=== PATIENT | female | born 1955 | race Caucasian/White ===

== ENCOUNTER → 2018-02-21 11:15 | Outpatient (CLI) | payer OTHER, SELFPAY | PROVIDERS: Family Provider Family Medicine Geriatric Medicine; PCP Family Medicine Geriatric Medicine; Visit Provider Family Medicine Geriatric Medicine | DX: R69 Illness, unspecified (principal) | CPT/HCPCS: 87633 ==

== ENCOUNTER → 2018-05-24 16:24 | Outpatient (CLI) | payer OTHER, SELFPAY ==
[2018-05-24 17:20] LABS: Absolute Neutrophil Count 3.9 X10^3/uL (2.0-7.7); Basophil# 0.02 X10^3/uL; Basophil% 0.3 % (0-1); Eosinophil# 0.52 X10^3/uL; Eosinophils% 8.4 % (0-5); Hematocrit 36.5 % (37-47); Hemoglobin 12.2 g/dl (12.0-15.0); Lymphocyte % 19.3 % (19-41); Mean Corp Hgb Conc 33.4 g/gl (32-36); Mean Corpuscular Volume 101.7 fL (81-99); Mean Platelet Vol. 10.9 fl (6.2-12.0); Monocyte# 0.61 X10^3/uL; Monocyte% 9.8 % (0-10); Neutrophil # 3.85 X10^3/uL (2.7-7.7); Platelet Count 193 K/mm3 (150-450); RBC Distribution Width CV 12.4 % (11.6-14.6); RBC Distribution Width SD 45.2 fl (35.1-43.9); Red Blood Count 3.59 M/mm3 (4.2-5.4); White Blood Count 6.2 K/mm3 (4.4-11.0)
[2018-05-24 17:42] LABS: POSITIVE COUNT NO; POSITIVE DIFFERENTIAL NO; POSITIVE MORPHOLOGY NO
[2018-05-24 17:47] LABS: AST(SGOT) 22 U/L (15-37); Alanine Aminotransfer ALT/SGPT 41 U/L (13-56); Albumin, Serum 3.6 g/dL (3.2-5.0); Alkaline Phosphatase 46 U/L (45-117); Anion Gap 6 (5-15); BUN 24 mg/dL (7-18); BUN/Creat Ratio 32.1 RATIO (10-20); Calcium,Total 8.8 mg/dL (8.5-10.1); Chloride 102 mmol/L (98-107); Creatinine, Serum 0.75 mg/dL (0.55-1.02); EST Glomerular Filtration Rate 83 mL/min (>60); Est Glom Filt Rate - Afr Amer 100 mL/min (>60); Globulin 3.5 g/dL (2.2-4.2); Glucose 93 mg/dL (74-106); Potassium 4.1 mmol/L (3.5-5.1); Protein, Total 7.1 g/dL (6.4-8.2); Sodium Level 135 mmol/L (136-145); Thyroid Stim Hormone (TSH) 2.29 uIU/mL (0.358-3.74)
== END ==
PROVIDERS: Family Provider Family Medicine Geriatric Medicine; PCP Family Medicine Geriatric Medicine; Visit Provider Family Medicine Geriatric Medicine
DX: E55.9 Vitamin D deficiency, unspecified (principal); I10 Essential (primary) hypertension
CPT/HCPCS: 36415; 80053; 82306; 84443; 85025

== ENCOUNTER → 2019-05-15 11:45 | Outpatient (CLI) | payer OTHER, SELFPAY | PROVIDERS: Family Provider Family Medicine Geriatric Medicine; PCP Family Medicine Geriatric Medicine; Referring Provider Family Medicine Geriatric Medicine; Visit Provider Family Medicine Geriatric Medicine | DX: R50.9 Fever, unspecified (principal) | CPT/HCPCS: 87633 ==

== ENCOUNTER → 2019-05-29 15:40 | Outpatient (CLI) | payer OTHER, SELFPAY ==
[2019-05-29 17:40] LABS: Absolute Lymphocyte Count 1.44 X10^3/uL (0.83-4.51); Absolute Neutrophil Count 4.2 X10^3/uL (2.0-7.7); Basophil# 0.03 X10^3/uL; Basophil% 0.5 % (0-1); Eosinophil# 0.21 X10^3/uL; Eosinophils% 3.2 % (0-5); Hematocrit 37.3 % (37-47); Hemoglobin 12.1 g/dL (12.0-15.0); Lymphocyte # 1.44 X10^3/ul (4.0); Lymphocyte % 21.7 % (19-41); Mean Corp Hgb Conc 32.4 g/dL (32-36); Mean Corpuscular Hgb 33.2 pg (27.0-32.0); Mean Corpuscular Volume 102.5 fL (81-99); Mean Platelet Vol. 10.7 fl (6.2-12.0); Monocyte# 0.77 X10^3/uL; Monocyte% 11.6 % (0-10); NRBC Flagged by Analyzer 0 % (0-5); Neutrophil # 4.18 X10^3/uL (2.7-7.7); Neutrophil % 62.8 % (47-70); Platelet Count 178 K/mm3 (150-450); RBC Distribution Width CV 12.5 % (11.6-14.6); RBC Distribution Width SD 47.2 fl (35.1-43.9); Red Blood Count 3.64 M/mm3 (4.2-5.4); White Blood Count 6.6 K/mm3 (4.4-11.0)
[2019-05-29 18:18] LABS: AST(SGOT) 17 U/L (15-37); Alanine Aminotransfer ALT/SGPT 34 U/L (13-56); Albumin, Serum 3.6 g/dL (3.2-5.0); Alkaline Phosphatase 48 U/L (45-117); Anion Gap 7 (5-15); BUN 25 mg/dL (7-18); BUN/Creat Ratio 32.8 RATIO (10-20); Calcium,Total 8.9 mg/dL (8.5-10.1); Chloride 100 mmol/L (98-107); Creatinine, Serum 0.76 mg/dL (0.55-1.02); EST Glomerular Filtration Rate 81 mL/min (>60); Est Glom Filt Rate - Afr Amer 97 mL/min (>60); Globulin 3.5 g/dL (2.2-4.2); Glucose 95 mg/dL (74-106); Potassium 3.7 mmol/L (3.5-5.1); Protein, Total 7.1 g/dL (6.4-8.2); Sodium Level 135 mmol/L (136-145); Thyroid Stim Hormone (TSH) 2.72 uIU/mL (0.358-3.74)
== END ==
PROVIDERS: Family Provider Family Medicine Geriatric Medicine; PCP Family Medicine Geriatric Medicine; Visit Provider Family Medicine Geriatric Medicine
DX: E55.9 Vitamin D deficiency, unspecified (principal); I10 Essential (primary) hypertension
CPT/HCPCS: 36415; 80053; 82306; 84443; 85025

== ENCOUNTER → 2020-06-01 17:29 | Outpatient (CLI) | payer OTHER, SELFPAY ==
[2020-06-01 17:56] LABS: Absolute Lymphocyte Count 1.43 X10^3/uL (0.83-4.51); Absolute Neutrophil Count 3.2 X10^3/uL (2.0-7.7); Basophil# 0.02 X10^3/uL; Basophil% 0.4 % (0-1); Eosinophil# 0.27 X10^3/uL; Eosinophils% 4.9 % (0-5); Hematocrit 38.5 % (37-47); Hemoglobin 12.5 g/dL (12.0-15.0); Lymphocyte # 1.43 X10^3/ul (4.0); Lymphocyte % 25.8 % (19-41); Mean Corp Hgb Conc 32.5 g/dL (32-36); Mean Corpuscular Hgb 34.2 pg (27.0-32.0); Mean Corpuscular Volume 105.5 fL (81-99); Mean Platelet Vol. 10.7 fl (6.2-12.0); Monocyte# 0.63 X10^3/uL; Monocyte% 11.4 % (0-10); NRBC Flagged by Analyzer 0 % (0-5); Neutrophil # 3.19 X10^3/uL (2.7-7.7); Neutrophil % 57.3 % (47-70); Platelet Count 184 K/mm3 (150-450); RBC Distribution Width CV 12.2 % (11.6-14.6); RBC Distribution Width SD 48.4 fl (35.1-43.9); Red Blood Count 3.65 M/mm3 (4.2-5.4); White Blood Count 5.6 K/mm3 (4.4-11.0)
[2020-06-01 18:31] LABS: Vitamin D,25 Hydroxy 26.9 ng/mL
[2020-06-01 18:43] LABS: ALB/GLOB Ratio 0.9 RATIO (0.9-2.4); AST(SGOT) 20 U/L (15-37); Alanine Aminotransfer ALT/SGPT 34 U/L (13-56); Albumin, Serum 3.6 g/dL (3.2-5.0); Alkaline Phosphatase 49 U/L (45-117); Anion Gap 7 (5-15); BUN 17 mg/dL (7-18); BUN/Creat Ratio 20.5 RATIO (10-20); Calcium,Total 9.5 mg/dL (8.5-10.1); Chloride 104 mmol/L (98-107); Creatinine, Serum 0.83 mg/dL (0.55-1.02); EST Glomerular Filtration Rate 73 mL/min (>60); Est Glom Filt Rate - Afr Amer 88 mL/min (>60); Globulin 3.8 g/dL (2.2-4.2); Glucose 92 mg/dL (74-106); Potassium 4.4 mmol/L (3.5-5.1); Protein, Total 7.4 g/dL (6.4-8.2); Sodium Level 138 mmol/L (136-145); Thyroid Stim Hormone (TSH) 4.39 uIU/mL (0.358-3.74)
== END ==
PROVIDERS: PCP Family Medicine Geriatric Medicine; Visit Provider Family Medicine Geriatric Medicine
DX: I10 Essential (primary) hypertension (principal); E55.9 Vitamin D deficiency, unspecified
CPT/HCPCS: 36415; 80053; 82306; 84443; 85025

== ENCOUNTER → 2020-07-07 11:21 | Outpatient (CLI) | payer OTHER, SELFPAY ==
[2020-07-07 12:57] LABS: Thyroid Stim Hormone (TSH) 1.94 uIU/mL (0.358-3.74)
== END ==
PROVIDERS: PCP Family Medicine Geriatric Medicine; Visit Provider Family Medicine Geriatric Medicine
DX: E03.9 Hypothyroidism, unspecified (principal)
CPT/HCPCS: 36415; 84443

== ENCOUNTER → 2020-09-17 16:00 | Outpatient (CLI) | payer OTHER, SELFPAY ==
[2020-09-17 16:59] LABS: Absolute Lymphocyte Count 0.55 X10^3/uL (0.83-4.51); Absolute Neutrophil Count 1.7 X10^3/uL (2.0-7.7); Basophil# 0.01 X10^3/uL; Basophil% 0.4 % (0-1); Eosinophil# 0.02 X10^3/uL; Eosinophils% 0.7 % (0-5); Hematocrit 39.8 % (37-47); Lymphocyte # 0.55 X10^3/ul (4.0); Lymphocyte % 20.4 % (19-41); Mean Corp Hgb Conc 32.7 g/dL (32-36); Mean Corpuscular Hgb 32.9 pg (27.0-32.0); Mean Corpuscular Volume 100.8 fL (81-99); Mean Platelet Vol. 11.4 fl (6.2-12.0); Monocyte# 0.41 X10^3/uL; Monocyte% 15.2 % (0-10); NRBC Flagged by Analyzer 0 % (0-5); Neutrophil # 1.71 X10^3/uL (2.7-7.7); Neutrophil % 63.3 % (47-70); POSITIVE DIFFERENTIAL YES; Platelet Count 128 K/mm3 (150-450); RBC Distribution Width CV 12.3 % (11.6-14.6); RBC Distribution Width SD 46.5 fl (35.1-43.9); Red Blood Count 3.95 M/mm3 (4.2-5.4); White Blood Count 2.7 K/mm3 (4.4-11.0)
[2020-09-17 17:21] LABS: Differential Indicated SCAN CRITERIA MET
[2020-09-17 17:23] LABS: AST(SGOT) 36 U/L (15-37); Alanine Aminotransfer ALT/SGPT 46 U/L (13-56); Albumin, Serum 3.6 g/dL (3.2-5.0); Alkaline Phosphatase 58 U/L (45-117); Anion Gap 6 (5-15); BUN 12 mg/dL (7-18); BUN/Creat Ratio 13.8 RATIO (10-20); Chloride 100 mmol/L (98-107); Creatinine, Serum 0.87 mg/dL (0.55-1.02); EST Glomerular Filtration Rate 69 mL/min (>60); Est Glom Filt Rate - Afr Amer 83 mL/min (>60); Globulin 3.7 g/dL (2.2-4.2); Glucose 98 mg/dL (74-106); Platelet Estimate SLT DEC (ADEQ); Potassium 3.8 mmol/L (3.5-5.1); Protein, Total 7.3 g/dL (6.4-8.2); Sodium Level 135 mmol/L (136-145); Thyroid Stim Hormone (TSH) 1.74 uIU/mL (0.358-3.74)
[2020-09-17 17:24] LABS: Anisocytosis 1+; Red Cell Morphology N CHROM NORMAL (NORM C&C)
[2020-09-17 17:25] LABS: Macrocytosis 1+
[2020-09-18 09:36] LABS: Pathologist Review Reviewed
== END ==
PROVIDERS: PCP Family Medicine Geriatric Medicine; Visit Provider Family Medicine Geriatric Medicine
DX: R53.83 Other fatigue (principal)
CPT/HCPCS: 36415; 80053; 84443; 85025

== ENCOUNTER → 2020-09-17 16:03 | Outpatient (CLI) | payer OTHER, SELFPAY ==
--- NOTE | 2020-09-17 16:05 | RAD_ITS ---
STUDY: X-RAY CHEST REASON FOR EXAM: Female, 65 years old. CHEST TIGHTNESS, COLD SX TECHNIQUE: 2 views COMPARISON: Prior chest radiograph of 09/26/2015 FINDINGS: The lungs are clear and expanded. Calcified granuloma at the right lung base. Normal size heart. Normal mediastinum and vance. Normal visualized pulmonary arteries. Mild elongation of the thoracic aorta. Straightening of the thoracic spine with degenerative disc changes. Normal visualized ribs, clavicles, and shoulders. There is no demonstrated abnormality of the visualized soft tissue structures of the upper abdomen. RAD/Chest PA and Lateral IMPRESSION: No acute cardiopulmonary findings or changes. Negative for new consolidation, focal atelectasis, pleural effusion or cardiomegaly. Electronically Signed: Linda Borja MD at 19:41 EST , Service support ,
== END ==
PROVIDERS: PCP Family Medicine Geriatric Medicine; Referring Provider Family Medicine Geriatric Medicine; Visit Provider Family Medicine Geriatric Medicine
DX: R07.89 Other chest pain (principal)
CPT/HCPCS: 71046

== ENCOUNTER → 2022-02-21 | Outpatient (CLI) | payer OTHER, SELFPAY ==
[2022-02-21 14:39] LABS: Absolute Lymphocyte Count 1.28 X10^3/uL (0.83-4.51); Absolute Neutrophil Count 4.4 X10^3/uL (2.0-7.7); Basophil# 0.03 X10^3/uL; Basophil% 0.5 % (0-1); Eosinophil# 0.23 X10^3/uL; Eosinophils% 3.5 % (0-5); Hematocrit 39.1 % (37-47); Hemoglobin 13.1 g/dL (12.0-15.0); Lymphocyte # 1.28 X10^3/ul (0.83-4.51); Lymphocyte % 19.2 % (19-41); Mean Corp Hgb Conc 33.5 g/dL (32-36); Mean Corpuscular Hgb 34.7 pg (27.0-32.0); Mean Corpuscular Volume 103.7 fL (81-99); Mean Platelet Vol. 9.8 fl (6.2-12.0); Monocyte# 0.68 X10^3/uL; Monocyte% 10.2 % (0-10); NRBC Flagged by Analyzer 0 % (0-5); Neutrophil # 4.43 X10^3/uL (2.7-7.7); Neutrophil % 66.4 % (47-70); Platelet Count 209 K/mm3 (150-450); RBC Distribution Width CV 13.2 % (11.6-14.6); RBC Distribution Width SD 50.7 fl (35.1-43.9); Red Blood Count 3.77 M/mm3 (4.2-5.4); White Blood Count 6.7 K/mm3 (4.4-11.0)
--- NOTE | 2022-02-21 14:41 | RAD_ITS ---
EXAM: XR CHEST, 2 VIEWS CLINICAL INDICATION: Chronic Cough X 1-2 Years TECHNIQUE: Frontal and lateral views of the chest. This report was created using [employer] report generation technology. COMPARISON: 09/17/2020. FINDINGS: LUNGS AND PLEURAL SPACES: Unremarkable. No consolidation or edema. No pneumothorax. No effusion. HEART: Unremarkable. Cardiac silhouette not enlarged. MEDIASTINUM: Central airways and mediastinal contour are unremarkable. BONES/JOINTS: Unremarkable. SOFT TISSUES: Unremarkable. RAD/Chest PA and Lateral IMPRESSION: No acute cardiopulmonary abnormality. No change. Electronically Signed: Ryan Vasquez MD at 7:53 EDT ,
[2022-02-25 11:08] LABS: Alternaria tenuis <0.10 kU/L (Class 0); Ash, White <0.10 kU/L (Class 0); Aspergillus fumigatus <0.10 kU/L (Class 0); Bermuda Grass <0.10 kU/L (Class 0); Birch <0.10 kU/L (Class 0); Black Walnut <0.10 kU/L (Class 0); Cat Hair / Dander,Stand <0.10 kU/L (Class 0); Cedar, Mountain <0.10 kU/L (Class 0); Cladosporium herbarum <0.10 kU/L (Class 0); Cockroach, American <0.10 kU/L (Class 0); Cottonwood <0.10 kU/L (Class 0); D farinae Mite <0.10 kU/L (Class 0); D pteronyssinus <0.10 kU/L (Class 0); Dog Epithelia <0.10 kU/L (Class 0); Elm, American White <0.10 kU/L (Class 0); Immunoglobulin E 78 IU/mL (6-495); Maple/Box Elder <0.10 kU/L (Class 0); Mulberry, White <0.10 kU/L (Class 0); Oak, White <0.10 kU/L (Class 0); Pecan <0.10 kU/L (Class 0); Penicillium Notatum <0.10 kU/L (Class 0); Pigweed, Rough <0.10 kU/L (Class 0); Ragweed, Short/Common <0.10 kU/L (Class 0); Russian Thistle 0.13 kU/L (Class 0/I); Sheep Sorrel <0.10 kU/L (Class 0); Sycamore, American <0.10 kU/L (Class 0); Timothy Grass 0.28 kU/L (Class 0/I)
[2022-02-25 22:13] LABS: Immunoglobulin E 78 IU/mL (6-495); Mouse Urine <0.10 kU/L (Class 0)
== END | disposition home or self-care (01) ==
PROVIDERS: PCP Family Medicine Geriatric Medicine; Referring Provider Internal Medicine Critical Care Medicine; Visit Provider Internal Medicine Critical Care Medicine
DX: R05.3 Chronic cough (principal)
CPT/HCPCS: 36415; 71046; 82785; 85025; 86003

== ENCOUNTER → 2022-03-17 | Outpatient (CLI) | payer OTHER, SELFPAY ==
--- NOTE | 2022-03-18 07:27 | PFT ---
INTRODUCTION: The patient is a 67-year-old female that presents for pulmonary function studies secondary to a diagnosis of chronic cough. Respiratory therapy reported good patient effort. Bronchodilators were used during testing. INTERPRETATION: Forced expiration spirometry demonstrates the presence of a mild large airways obstructive ventilatory defect. There was no significant response to aerosolized bronchodilators. Spirograms are of good quality but do not plateau indicating slow emptying of the lungs. Body plethysmography was performed and reveals lung volumes to be within normal limits. Diffusing capacity by single breath CO is also within normal limits. When compared to PFTs from June 2015, there has been a 27% reduction in FEV1. IMPRESSION: Irreversible mild large airways obstructive ventilatory defect with preserved lung volumes and diffusing capacity.
== END | disposition home or self-care (01) ==
PROVIDERS: PCP Family Medicine Geriatric Medicine; Referring Provider Internal Medicine Critical Care Medicine; Visit Provider Internal Medicine Critical Care Medicine
DX: R05.3 Chronic cough (principal)
CPT/HCPCS: 94060; 94726; 94729

== ENCOUNTER 2022-07-08 09:08 | Outpatient (CLI) | payer OTHER, SELFPAY ==
[2022-07-08 13:00] LABS: Absolute Lymphocyte Count 1.51 X10^3/uL (0.83-4.51); Absolute Neutrophil Count 2.5 X10^3/uL (2.0-7.7); Basophil# 0.03 X10^3/uL; Basophil% 0.6 % (0-1); Eosinophil# 0.31 X10^3/uL; Eosinophils% 6.1 % (0-5); Hematocrit 40.6 % (37-47); Hemoglobin 13.1 g/dL (12.0-15.0); Lymphocyte # 1.51 X10^3/ul (0.83-4.51); Lymphocyte % 29.6 % (19-41); Mean Corp Hgb Conc 32.3 g/dL (32-36); Mean Corpuscular Hgb 33.4 pg (27.0-32.0); Mean Corpuscular Volume 103.6 fL (81-99); Mean Platelet Vol. 11.3 fl (6.2-12.0); Monocyte# 0.72 X10^3/uL; Monocyte% 14.1 % (0-10); NRBC Flagged by Analyzer 0 % (0-5); Neutrophil # 2.51 X10^3/uL (2.7-7.7); Neutrophil % 49.2 % (47-70); Platelet Count 185 K/mm3 (150-450); RBC Distribution Width CV 13.2 % (11.6-14.6); RBC Distribution Width SD 50.2 fl (35.1-43.9); Red Blood Count 3.92 M/mm3 (4.2-5.4); White Blood Count 5.1 K/mm3 (4.4-11.0)
[2022-07-08 13:14] LABS: Vitamin D,25 Hydroxy 29.8 ng/mL
[2022-07-08 13:51] LABS: AST(SGOT) 46 U/L (15-37); Alanine Aminotransfer ALT/SGPT 66 U/L (13-56); Albumin, Serum 3.6 g/dL (3.2-5.0); Alkaline Phosphatase 53 U/L (45-117); Anion Gap 5 (5-15); BUN 13 mg/dL (7-18); BUN/Creat Ratio 16.9 RATIO (10-20); Chloride 101 mmol/L (98-107); Creatinine, Serum 0.77 mg/dL (0.55-1.02); EST Glomerular Filtration Rate 79 mL/min (>60); Est Glom Filt Rate - Afr Amer 96 mL/min (>60); Globulin 3.7 g/dL (2.2-4.2); Glucose 85 mg/dL (74-106); Potassium 3.9 mmol/L (3.5-5.1); Protein, Total 7.3 g/dL (6.4-8.2); Sodium Level 136 mmol/L (136-145)
== END 2022-07-08 23:59 | disposition home or self-care (01) ==
LOC: POLAB3 09:08
PROVIDERS: PCP Family Medicine Geriatric Medicine; Visit Provider Family Medicine Geriatric Medicine
DX: I10 Essential (primary) hypertension (principal); E55.9 Vitamin D deficiency, unspecified
CPT/HCPCS: 36415; 80053; 82306; 84443; 85025

== ENCOUNTER → 2022-12-07 | Outpatient (CLI) | payer OTHER, SELFPAY | END | disposition home or self-care (01) | PROVIDERS: PCP Family Medicine Geriatric Medicine; Referring Provider Family Medicine Geriatric Medicine; Visit Provider Family Medicine Geriatric Medicine | DX: A69.20 Lyme disease, unspecified (principal); W57.XXXA Bitten or stung by nonvenomous insect and other nonvenomous arthropods, initial encounter | CPT/HCPCS: 36415 ==

== ENCOUNTER → 2023-08-22 | Outpatient (CLI) | payer OTHER, MEDICARE, SELFPAY ==
--- OUTSIDE RECORDS SUMMARY | 2023-08-22 11:07 | XMS RPT_ITS | CCD ---
Author Name Unknown Address [id number] [place] [address] Organization [facility] Care Team Providers Care Rib Trim Separator Name Role Phone No, Physician Unavailable Unavailable Mona Humphries J Unavailable Unavailable Humphries Mona J Unavailable Unavailable Humphries, Mona J Unavailable Unavailable Humphries, Mona J Unavailable Unavailable Humphries, Oliverio J Unavailable Unavailable Humphries, Oliverio J Unavailable Unavailable Humphries, Mona J Unavailable Unavailable Humphries, Mona J Unavailable Unavailable Humphries, Mona J Unavailable Unavailable Humphries, Mona J Unavailable Unavailable MONA HUMPHRIES DPM Admitting Unavailable MONA HUMPHRIES DPM Attending Unavailable MONA HUMPHRIES DPUte Primary Care Unavailable No, Physician Primary Care Provider Unavailruma Gallardo MD, Rosio Mccormack Primary Care Provider [phone] Martita, Sylvia Unavailable Priyanka Plascencia Unavailable Unavailable Brayan Pennington Unavailable Unavailable Rosio Gallardo Chi Primary Care Provider [phone] Martita, JorgeChi Unavailable Martita, Dr. Ward Primary Care Unavailable Omari Castro Attending Unavailable Brayan Pennington Attending Unavailable Dr. Sylvia Gallardo Primary Care Unavailable Priyanka Plascencia Attending Unavailab Dr. Sylvia Mcfarland Primary Care Unavailable Omari Castro Attending Unavailable Martita, Dr. Ward Primary Care Unavailable Omari Castro Attending Unavailable Martita, Dr. Ward Primary Care Unavailable Martita, Dr. Ward Primary Care Unavailable Omari Castro Attending Unavailable Dr. Sylvia Gallardo Primary Care Unavailable Omari Castro Attending Unavailable Martita, Dr. Ward Primary Care Unavailable Omari Castro Attending Unavailable Dr. Martita [facility] Primary Care Unavailable Omari Castro Attending Unavailable Martita PENA, [facility] Primary Care Provider CHAIM FRANKLIN Attending Unavailab le MARTITA, [facility] Primary Care Unavailable HUMPHRIESMONA ZENG Admitting Unavaila ble HUMPHRIESMONA Admitting Unavaila ble HUMPHRIESMONA ZENG Attending Unavaila ble MARTITA, [facility] Primary Care Unavailable MARTITA, ROSIO CHI Primary Care Unavailable HUMPHRIESMONA Attending Unavaila ble MARTITA, ROSIO CHI Primary Care Unavailable HUMPHRIESMONA ZENG Attending Unavaila ble MARTITA, [facility] Primary Care Unavailable HUMPHRIESMONA ZENG Attending Unavaila ble MARTITA, [facility] Primary Care Unavailable HUMPHRIES, MONA HUTSON Attending Unavaila ble MARTITA, [facility] Primary Care Unavailable HUMPHRIESMONA ZENG Attending Unavaila ble MARTITA, [facility] Primary Care Unavailable HUMPHRIESMONA ZENG Attending Unavaila ble MARTITA, [facility] Primary Care Unavailable HUMPHRIESMONA ZENG Attending Unavaila ble MARTITA, [facility] Primary Care Unavailable MONA HUMPHRIES Referring Unavaila ble MONA HUMPRHIES Admitting Unavaila ble Martita, [facility] Primary Care Provider [phone] MARTITA, [facility] Primary Care Unavailable TE KELLY II Attending Unavailabl e MARTITA, [facility] Primary Care Unavailable KATE KELLY Attending Unavailabl e Allergies Allergy Classification Reported Allergen(s) Allergy Type Date of Onset Reaction(s) Facility Unclassified (10 sources) Insect Venom; Translations: [INSECT VENOM] Propensity to adverse reactions to drug 1 Anaphylaxis [facility] (11 sources) Hornet venom; Translations: [HORNET VENOM] Drug Allergy 7 Anaphylaxis [facility] (3 sources) Insects; Translations: [INSECTS] Allergy to substance 4 Anaphylaxis [facility] (3 sources) Wasps; Translations: [WASPS] Allergy to substance 7 Anaphylaxis [facility] (3 sources) Yellowjackets; Translations: [YELLOWJACKETS] Allergy to substance 7 Anaphylaxis [facility] (8 sources) wasp venom; Translations: [WASP VENOM] Propensity to adverse reactions to drug 7 Anaphylaxis [facility] Medications Current Medications Medication Drug Class(es) Dates Sig (Normalized) Sig (Original) cephalexin 500 mg oral capsule (1 source) Cephalosporin Antibacterial Start: 11-17-2022 End: 11-24-2022 take 1 capsule by mouth four times daily cephALEXin (KEFLEX) 500 MG capsule Take 1 (one) capsule (500 mg total) by mouth 4 (four) times a day for 7 days . 28 capsule 0 11/17/2022 11/24/2022 Active citalopram 20 mg oral tablet (10 sources) Serotonin Reuptake Inhibitor Start: 01-22-2015 take 1 tablet by mouth once daily in the morning citalopram (CELEXA) 20 MG tablet Take 1 (one) tablet (20 mg total) by mouth every morning . 0 05/06/2022 Active Completed/Discontinued Medications Medication Drug Class(es) Dates Sig (Normalized) Sig (Original) [id number] 200 actuat albuterol 0.09 mg/actuat metered dose inhaler (3 sources) beta2-Adrenergic Agonist Start: 01-03-2022 take 2 puff(s) by inhalation four times daily albuterol 90 mcg/inh inhalation aerosol ; 2 puff(s) inhaled 4 times a day Quantity: 1 Refills: 0 Ordered: 03-Jan-2022 Brayan Pennington Start: 03-Jan-2022 Generic Substitution Allowed Comments: For inhalation only.It is very important that you take or use this exactly as directed. Do not skip doses or discontinue unless directed by your doctor.Obtain medical advice before taking any non-prescription drugs as some may affect the action of this medication.Shake well before use. Problems Active Problems Problem Classification Problem Date Documented Date Episodic/Chronic Acquired foot deformities (7 sources) Acquired hallux valgus; Translations: [Hallux valgus (acquired), unspecified foot] 02-28-2021 Chronic Blindness and vision defects (8 sources) Bilateral hyperopia of eyes; Translations: [Hypermetropia, bilateral] Onset: 03-22-2014 Episodic Cataract (3 sources) Bilateral senile combined form cataracts of eyes; Translations: [Combined forms of age-related cataract, bilateral] Onset: 03-22-2014 03-19-2018 Chronic Complications of surgical procedures or medical care (3 sources) Infection following a procedure, superficial incisional surgical site, initial encounter; Translations: [Other postoperative infection] Onset: 11-17-2022 11-17-2022 Episodic Esophageal disorders (5 sources) Gastroesophageal reflux disease; Translations: [Gastro-esophageal reflux disease without esophagitis] Onset: 10-28-2022 10-28-2022 Chronic Essential hypertension (5 sources) Hypertensive disorder; Translations: [Essential (primary) hypertension] Onset: 10-28-2022 10-28-2022 Chronic Headache; including migraine (3 sources) Headache; including migraine; Translations: [Headache, unspecified] Onset: 01-03-2022 01-03-2022 Past or Other Problems Problem Classification Problem Date Documented Date Episodic/Chronic Other circulatory disease (1 source) Other specified symptoms and signs involving the circulatory and respiratory systems; Translations: [Oth symptoms and signs involving the circ and resp systems] Onset: 08-19-2021 Episodic Other connective tissue disease (2 sources) Pain in left foot; Translations: [Pain in left foot] Onset: 07-21-2022 Episodic Other eye disorders (2 sources) Subconjunctival hemorrhage of left eye; Translations: [Conjunctival hemorrhage, left eye] Onset: 12-25-2017 12-25-2017 Episodic Other lower respiratory disease (1 source) Wheezing; Translations: [Wheezing] Onset: 08-19-2021 Episodic Other upper respiratory disease (1 source) Nasal congestion; Translations: [Nasal congestion] Onset: 08-19-2021 Episodic Other upper respiratory infections (4 sources) Acute upper respiratory infection; Translations: [Acute upper respiratory infections of unspecified site] Onset: 08-19-2021 08-19-2021 Episodic Pleurisy; pneumothorax; pulmonary collapse (3 sources) Atelectasis; Translations: [Pulmonary collapse] Onset: 01-03-2022 01-03-2022 Episodic Pneumonia (except that caused by tuberculosis or sexually transmitted disease) (3 sources) Pneumonia; Translations: [Pneumonia, organism unspecified] Onset: 01-03-2022 01-03-2022 Episodic Results Test Name Value Interpretation Reference Range Facil ity Vital Signs Date Time Vital Sign Value Performing Clinician Faci lity 11-17-2022 16:05-0400 Body temperature 98.6 [degF] Mona Humphries DPM Work Phone: [facility] 11-17-2022 16:05-0400 Diastolic blood pressure 83 mm[Hg] Mona Hupmhries DPM Work Phone: [facility] 11-17-2022 16:05-0400 Heart rate 57 /min Mona Humphries DPM Work Phone: [facility] 11-17-2022 16:05-0400 Systolic blood pressure 160 mm[Hg] Mona Humphries DPM Work Phone: [facility] 11-10-2022 15:44-0400 Diastolic blood pressure 86 mm[Hg] Mona Humphries DPM Work Phone: [facility] 11-10-2022 15:44-0400 Heart rate 59 /min Mona Humphries DPM Work Phone: [facility] 11-10-2022 15:44-0400 Systolic blood pressure 172 mm[Hg] Mona Humphries DPM Work Phone: [facility] 11-10-2022 15:35-0400 Body temperature 98.49 [degF] Mona Humphries DPM Work Phone: [facility] 10-28-2022 12:57-0400 Body temperature 97.59 [degF] Monalokesh BazanHumphries DPM Work Phone: [facility] 10-28-2022 12:57-0400 Diastolic blood pressure 112 mm[Hg] Mona Humphries DPM Work Phone: [facility] 10-28-2022 12:57-0400 Heart rate 71 /min Mona Humphries DPM Work Phone: [facility] 10-28-2022 12:57-0400 Systolic blood pressure 158 mm[Hg] Mona Humphries DPM Work Phone: [facility] 10-13-2022 15:48-0500 Diastolic blood pressure 85 mm[Hg] Mona Humphries DPM Work Phone: [facility] 10-13-2022 15:48-0500 Heart rate 61 /min Mona Humphries DPM Work Phone: [facility] 10-13-2022 15:48-0500 Systolic blood pressure 135 mm[Hg] Mona Humphries DPM Work Phone: [facility] 10-13-2022 15:41-0500 Body temperature 97.2 [degF] Mona Humphries DPM Work Phone: [facility] 08-18-2022 16:09-0500 Diastolic blood pressure 90 mm[Hg] Mona Humphries DPM Work Phone: [facility] 08-18-2022 16:09-0500 Systolic blood pressure 140 mm[Hg] Mona Humphries DPM Work Phone: [facility] 08-18-2022 15:47-0500 Body temperature 97.3 [degF] Mona Humphires DPM Work Phone: [facility] 07-21-2022 17:07-0500 Diastolic blood pressure 111 mm[Hg] Mona Humphries DPM Work Phone: [facility] Encounters Encounter Date Encounter Type Care Provider Facility Start: 03-09-2023 End: 03-09-2023 ambulatory ROSIO CHI MARTITA Facility:[facility] Start: 03-09-2023 End: 03-09-2023 Patient encounter procedure Te Kelly OD Work Phone: Optometry Procedures Date Procedure Procedure Detail Performing Clinician Start: 02-18-2021 Radex foot complete minimum 3 views Mona Humphries DPM Work Phone: Start: 07-17-2018 End: 07-17-2018 Basic metabolic 2000 panel - Serum or Plasma Mona Humphries Work Phone: Start: 07-17-2018 End: 07-17-2018 Complete blood count with white cell differential, manual Mona Humphries Work Phone: Plan of Treatment Date Care Activity Detail Author Start: 09-01-2023 Influenza vaccination INFLUENZA (#1) [facility] Start: 12-01-2022 End: 12-01-2022 Patient encounter procedure 12/01/2022 3:45 PM EDT Office Visit [facility] [address] [place] [address] Mona Humphries, MARY [address] [place] [address] [facility] Start: 11-17-2022 End: 11-17-2022 Patient encounter procedure 11/17/2022 4:15 PM EDT Office Visit [facility] [address] [place] [address] Mona Humphries, MARY [address] [place] [address] [facility] Start: 11-10-2022 End: 11-10-2022 Follow-up encounter 11/10/2022 Follow-Up Podiatry Mona Humphries DPM [address] [place] [address] [facility] Start: 11-02-2022 End: 11-02-2022 Admission to same day surgery center 11/02/2022 Surgery Mona Humphries DPM [address] [place] [address] GANGLIONECTOMY left foot [facility] [place] [facility] Immunizations Immunization Date Immunization Notes Care Provider Fa cili 06-07-2017 influenza, seasonal, injectable Kate Kelly OD Work Phone: [facility] 08-07-2013 pneumococcal polysaccharide vaccine, 23 valent Kate Kelly OD Work Phone: [facility] Work Phone: Payers Date Payer Category Payer Unknown [id number] 2015 Unknown [id number] 2015 Unknown [employer] PPO [id number] 2015-Present [id number] 2015 Unknown 1953 Unknown [id number] [id number]1 1953 Unknown [id number] 2.16.840.1.385547.3.579.2.1068 1953 Unknown [id number] 2.16.840.1.551821.3.579.2.1068 1953 Unknown [id number] 2.16.840.1.084141.3.579.2.1068 1953 Unknown [id number] 2.16.840.1.744191.3.579.2.1068 1953 Unknown [id number] 2.16.840.1.695678.3.579.2.1068 1953 Unknown [id number] 2.16.840.1.443270.3.579.2.1068 1953 Unknown [id number] 2.16.840.1.480000.3.579.2.1068 1953 Unknown [id number] 2.16.840.1.685489.3.579.2.1068 1953 Unknown [id number] 2.16.840.1.960156.3.579.2.1068 1953 Unknown [id number] 2.16.840.1.170799.3.579.2. 1953 Unknown [id number] 2.16.840.1.433032.3.579.2. 1953 Unknown [id number] 2.16.840.1.461925.3.579.2.903 1953 Unknown [id number] 2.16.840.1.760435.3.579.2.903 1953 Unknown [id number] 2.16.840.1.800028.3.579.2.903 1953 Unknown [id number] 2.16.840.1.554735.3.579.2. 1955 Unknown [id number] 2.16.840.1.657932.3.579.2. 1955 Unknown [id number] 2.16.840.1.052760.3.579.2. 1955 Unknown [id number] 2.16.840.1.056371.3.579.2.3 1955 Unknown [id number] 2.16.840.1.596609.3.579.2. Social History Date Type Detail Facility Tobacco smoking status DCIS Unknown if ever smoked [facility] Start: 1955 Sex Assigned At Not on file [facility] Start: 03-22-2014 End: 02-18-2021 Tobacco smoking status DCIS Never smoker [facility] Start: 03-22-2014 End: 02-18-2021 Tobacco use and exposure Never used [facility] Start: 02-18-2021 End: 03-09-2023 Alcohol intake Current drinker of alcohol (finding) [facility] Start: 02-18-2021 Alcohol Comment Socially [facility] Start: 03-04-2022 End: 11-17-2022 Exposure to SARS-CoV-2 (event) Not sure [facility] Tobacco smoking consumption unknown [facility] Start: 03-14-2022 End: 03-09-2023 Alcohol intake [facility] Start: 03-22-2014 History SDOH Alcohol Comment weekly [facility] Start: 11-03-2022 End: 03-09-2023 Tobacco use panel [facility] National Score (1-100), lower number is lower risk 71 [facility] Clinical Notes 03-22-2014 to 03-09-2023 Patient InstructionsTe Kelly II, OD - 03/09/2023 10:34 AM EDForest Humphries, DPM - 11/17/2022 4:52 PM EDForest Humphries, MARY - 11/10/2022 4:22 PM EDTPatient Instructions Note Date & Type Note Facility 03-09-2023 Note HNO ID: [id number] Author: Te Kelly II, OD Service: ? 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 Good fit. Lovelace increased. Recheck in one year. H43.393 Vitreous floaters of both eyes Comment: Vitreal floaters stable both eyes. Retinas flat and intact with no apparent retinal tear or traction. Monitor yearly. H25.813 Combined form of senile cataract of both eyes Comment: Trace cataract in both eyes. Well tolerated at this time. Monitor as instructed. I have confirmed and edited as necessary the relevant ophthalmic history, ROS, and the neuro exam findings as obtained by others. I have seen and examined Alejandro Rodriguez. I have discussed the case and the management of this patient's care with the Resident/Fellow, if applicable. I also have reviewed and agree with the assessment and plan as stated above and agree with all of its relevant components. Te Kelly II, OD [facility] 03-09-2023 Instructions Te Kelly II, OD - 03/09/2023 10:36 AM EDT Assessment and Plan H52.03 Hypermetropia of both eyes (primary encounter diagnosis) H52.4 Presbyopia Comment: Ocular health maintained with contact lens use. Good fit. Lovelace increased. Recheck in one year. H43.393 Vitreous floaters of both eyes Comment: Vitreal floaters stable both eyes. Retinas flat and intact with no apparent retinal tear or traction. Monitor yearly. H25.813 Combined form of senile cataract of both eyes Comment: Trace cataract in both eyes. Well tolerated at this time. Monitor as instructed. I have confirmed and edited as necessary the relevant ophthalmic history, ROS, and the neuro exam findings as obtained by others. I have seen and examined Alejandro Rodriguez. I have discussed the case and the management of this patient's care with the Resident/Fellow, if applicable. I also have reviewed and agree with the assessment and plan as stated above and agree with all of its relevant components. Te Kelly II, OD documented in this encounter [facility] 03-09-2023 History of Present illness Narrative Assessment and Plan H52.03 Hypermetropia of both eyes (primary encounter diagnosis) H52.4 Presbyopia Comment: Ocular health maintained with contact lens use. Good fit. Lovelace increased. Recheck in one year. H43.393 Vitreous floaters of both eyes Comment: Vitreal floaters stable both eyes. Retinas flat and intact with no apparent retinal tear or traction. Monitor yearly. H25.813 Combined form of senile cataract of both eyes Comment: Trace cataract in both eyes. Well tolerated at this time. Monitor as instructed. I have confirmed and edited as necessary the relevant ophthalmic history, ROS, and the neuro exam findings as obtained by others. I have seen and examined Alejandro Rodriguez. I have discussed the case and the management of this patient's care with the Resident/Fellow, if applicable. I also have reviewed and agree with the assessment and plan as stated above and agree with all of its relevant components. Te Kelly II, OD documented in this encounter [facility] 11-17-2022 History of Present illness Narrative Patient: Alejandro Rodriguez Date of : 1955 (67 y.o.) PCP: Rosio Gallardo MD Procedures ASSESSMENT/PLAN: Alejandro Rodriguez 67 y.o. female with history of status post excision of ganglion cyst of the left foot with beginning of postoperative infection. Plan: I did remove half the stitches but the wound was not completely healed. I placed patient on doxycycline 100 mg twice a day for a week. Bacitracin and a bandage were applied. Patient is told to still take it easy and keep foot elevated return in 1 week. Assessment & plan notes cannot be loaded without a specified hospital service. SUBJECTIVE: History Since Last Visit: Patient is 67-year-old female who is status post excision of a ganglion cyst from the left foot. Patient probably has been doing more than expected with going back to school this week. Review of Systems: OBJECTIVE: Physical Examination: Integument-the dorsal skin incision was clean dry but had some erythema warmth and edema. The incision was not completely closed and the dorsum of the left Neuro-intact left Musculoskeletal-nonpitting edema of the left. Vascular- dp and pt left BP (!) 160/83 (BP Location: Left arm, Patient Position: Sitting, BP Cuff Size: X-large Adult) Pulse (!) 57 Temp 98.6 F (37 C) (Infrared) Laboratory and Additional Data Reviewed: Reviewed:[id number]} ECG 12 Lead Sinus bradycardia with sinus arrhythmia Rightward axis Low voltage QRS Borderline ECG Confirmed by Stef Muro MD ([id number]) on 10/30/2022 10:04:47 AM documented in this encounter [facility] 11-10-2022 History of Present illness Narrative Patient: Alejandro Rodriguez Date of : 1955 (67 y.o.) PCP: Rosio Gallardo MD Procedures ASSESSMENT/PLAN: Alejandro Rodriguez 67 y.o. female with history of status post excision of ganglion cyst left foot doing well. Plan: Bacitracin and dry sterile dressing applied to left foot. Patient to continue with surgical shoe reappoint 1 week to have stitches removed. Assessment & plan notes cannot be loaded without a specified hospital service. SUBJECTIVE: History Since Last Visit: Status post excision of ganglion cyst left foot doing well. Patient had surgery 1 week ago. Review of Systems: Unremarkable OBJECTIVE: Physical Examination: Integument-the incision the dorsum of the left foot is dry clean and intact. No redness no drainage no odor no signs infection. Neuro-intact left foot Musculoskeletal-minimal pain and swelling of the dorsum of the left foot. Patient can dorsiflex and plantarflex the toes without difficulty. BP (!) 172/86 (BP Location: Right arm, Patient Position: Sitting, BP Cuff Size: Adult) Pulse (!) 59 Temp 98.5 F (36.9 C) (Infrared) Laboratory and Additional Data Reviewed: Reviewed:[id number]} ECG 12 Lead Sinus bradycardia with sinus arrhythmia Rightward axis Low voltage QRS Borderline ECG Confirmed by Stef Muro MD ([id number]) on 10/30/2022 10:04:47 AM documented in this encounter [facility] 10-28-2022 History of Present illness Narrative Podiatry Outpatient H&P 10/28/2022 Mona Humphries DPM @[email or web address]@ Patient: Alejandro Rodriguez Date of : 1955 (67 y.o.) PCP: Rosio Gallardo MD @[email or web address]@ ASSESSMENT/PLAN: Alejandro Rodriguez 67 y.o. female with history of painful ganglion cyst of the left forefoot. Plan: Patient is scheduled to have the painful ganglion cyst removed under MAC anesthesia. Patient will be in a surgical shoe for 2 weeks. Patient told she needs to take off work during this time. Patient explained risks and complications of all the surgery which include infection, bleeding, numbness, delayed healing, swelling, scar, reoccurrence and pain. After all questions were answered patient like to move forward with surgery at this time. The consent form was signed preoperatively. Assessment & plan notes cannot be loaded without a specified hospital service. SUBJECTIVE: Chief Complaint/Reason for Visit: Patient complains of a painful ganglion cyst the left foot History of Present Illness: Alejandro Rodriguez is a 67 y.o. female presenting from home with complaint of painful ganglion cyst the left foot. Patient's had this going on for few months. Patient's had it drained and unfortunately it came back. Patient like to move forward surgery to have it removed. Review of Systems: Past Medical History: Diagnosis Date Acquired hallux valgus Nickel allergy Obesity Posterior tibial tendinitis Past Surgical History: Procedure Laterality Date APPENDECTOMY BUNIONECTOMY Bilateral 2018 CALCANEAL OSTEOTOMY Right 2019 CARPAL TUNNEL RELEASE HYSTERECTOMY (CERVIX REMAINS) TOTAL KNEE ARTHROPLASTY Bilateral 2009 Family History Family history unknown: Yes Social History Tobacco Use Smoking Status Never Smokeless Tobacco Never Additional History Comments: None Allergies: Hornet venom, Insect venom, and Wasp venom Current HOME Medications: Outpatient Medications Marked as Taking for the 10/28/22 encounter (Office Visit) with Mona Humphries DPM: citalopram (CELEXA) 20 MG tablet, Take 1 (one) tablet (20 mg total) by mouth daily . EPINEPHrine (EPIPEN) 0.3 mg/0.3 mL AtIn, levothyroxine (SYNTHROID, LEVOTHROID) 25 MCG tablet, Take 1 (one) tablet (25 mcg total) by mouth daily . losartan-hydrochlorothiazide (HYZAAR) 50-12.5 mg per tablet, Take 1 (one) tablet by mouth daily . omeprazole (PRILOSEC) 20 MG capsule, Take 25 mg by mouth daily . OBJECTIVE: Physical Examination: Integument-skin is warm dry and supple on the left foot. Neuro-intact left Musculoskeletal-there is a 1.5 cm firm soft tissue mass along the dorsal aspect of the left first metatarsocuneiform joint. Vascular-DP PT pulses are palpable in the left foot BP (!) 158/112 (BP Location: Right arm, Patient Position: Sitting, BP Cuff Size: X-large Adult) Pulse 71 Temp 97.6 F (36.4 C) (Temporal) Laboratory and Additional Data Reviewed: Reviewed 10/28/22 1:17 PM: Medications documented in this encounter [facility] 10-13-2022 History of Present illness Narrative Patient: Alejandro Rodriguez Date of : 1955 (67 y.o.) PCP: Rosio Gallardo MD Procedures ASSESSMENT/PLAN: Alejandro Rodriguez 67 y.o. female with history of painful ganglion cyst of the left foot. Plan: I advised patient to have the ganglion cyst removed from left foot. Patient was told she need to be off work for 2 weeks. Patient to return for H&P. Assessment & plan notes cannot be loaded without a specified hospital service. SUBJECTIVE: History Since Last Visit: Patient 67-year-old female comes in with painful ganglion cyst return to the left foot. Patient's had it drained but unfortunately it is back and she like to have it removed. Review of Systems: Unremarkable OBJECTIVE: Physical Examination: Integument-skin is warm dry and supple on the left foot. Neuro-intact left foot Musculoskeletal-there is a 2 cm x 2 cm fluid-filled cyst on the dorsum of the left forefoot. Vascular-DP PT pulses are palpable in the left foot. BP 135/85 (BP Location: Right arm, Patient Position: Sitting, BP Cuff Size: Adult) Pulse 61 Temp 97.2 F (36.2 C) (Infrared) Laboratory and Additional Data Reviewed: Reviewed:[id number]} XR Foot Left 3+ Views (Standard) X-rays 3 views left foot: There is a screw in the first metatarsal of a well-healed osteotomy. Patient does have some joint space narrowing of the first metatarsal phalange joint and tarsometatarsal joints. documented in this encounter [facility] 08-18-2022 History of Present illness Narrative Patient: Alejandro Rodriguez Date of : 1955 (67 y.o.) PCP: Rosio Gallardo MD Procedures ASSESSMENT/PLAN: Alejandro Rodriguez 67 y.o. female with history of ganglion cysts of the left foot. Plan: Since there is been a partial recurrence I recommended patient have the ganglion cyst removed. Patient states that since is not hurting and there is no signs of malignant cells in her aspiration she wants to hold off. Patient was told just to call if she wants to have it removed. Assessment & plan notes cannot be loaded without a specified hospital service. SUBJECTIVE: History Since Last Visit: Patient 67-year-old female seen for a ganglion cyst that was aspirated from her left foot 1 month ago. Patient relates that its not hurting but there is been a small amount of reoccurrence. Review of Systems: Unremarkable OBJECTIVE: Physical Examination: Integument-skin is warm dry and supple left foot. There are previous scars over the first and second toes of the left foot from surgery Neuro-intact left foot Musculoskeletal-there is a 5 mm fluid-filled sac coming off of one of the extensor tendons at the level of the tarsometatarsal joint on the left foot Vascular-DP PT pulses are palpable left foot BP (!) 140/90 (BP Location: Left arm, Patient Position: Sitting) Temp 97.3 F (36.3 C) (Infrared) Laboratory and Additional Data Reviewed: Reviewed:[id number]} XR Foot Left 3+ Views (Standard) X-rays 3 views left foot: There is a screw in the first metatarsal of a well-healed osteotomy. Patient does have some joint space narrowing of the first metatarsal phalange joint and tarsometatarsal joints. documented in this encounter [facility] 07-21-2022 History of Present illness Narrative Patient: Alejandro Rodriguez Date of : 1955 (67 y.o.) PCP: Rosio Gallardo MD Procedures ASSESSMENT/PLAN: Alejandro Rodriguez 67 y.o. female with history of ganglion cyst of the left foot. Plan: I anesthetized the dorsal of the left foot with 3 cc of 1% Polocaine. After an alcohol swab I aspirated 1 cc of gelatinous type liquid from the extensor tendon at the level of the tarsometatarsal joint. The aspirate was sent to pathology to check for squamous cell carcinoma. If this gelatinous mass returns I would recommend surgical excision. Assessment & plan notes cannot be loaded without a specified hospital service. SUBJECTIVE: History Since Last Visit: Patient 67-year-old female seen at the office for a painful ganglion cyst on the top of the left foot. Patient relates it popped up in the last several months. Patient relates is getting uncomfortable to wear shoes. Review of Systems: Unremarked OBJECTIVE: Physical Examination: Integument-there is previous scars from a bunionectomy on the left foot. Neuro-intact left foot Musculoskeletal-there is a 1 cm fluid filled type sac coming off of the extensor tendons of the left foot at the level of the tarsometatarsal joint. Vascular-DP and PT pulse are palpable left foot BP (!) 207/114 (BP Location: Left arm, Patient Position: Sitting, BP Cuff Size: X-large Adult) Pulse (!) 53 Temp 97.7 F (36.5 C) (Infrared) Laboratory and Additional Data Reviewed: Reviewed:[id number]} XR Foot Right 3+ Views (Standard) X-rays 3 views right foot: Patient has screw fixation from previous calcaneal osteotomy which is well-healed, pins in the first metatarsal and second toe from previous bunion and second hammertoe. Patient has no signs of inferior calcaneal heel spur and no signs of stress fracture of the first through 5 metatarsals documented in this encounter [facility] 03-14-2022 Note HNO ID: [id number] Author: Kate Kelly OD Service: ? Author Type: INVENTORY SPECIALIST Type: Progress Notes Filed: 03/14/2022 12:23 PM Note Text: ASSESSMENT/PLAN: 1. Hypermetropia of both eyes - ICD9: 367.0, ICD10: H52.03 (primary diagnosis) 2. Presbyopia - ICD9: 367.4, ICD10: H52.4 Continue to wear her glasses as desired. Continue to wear her contact lenses on a daily basis replacing with each use. Discussed trying new lovelace and she can order which she prefers. Recommended yearly exams. Kate Kelly OD [facility] 03-14-2022 Instructions Kate Kelly OD - 03/14/2022 12:22 PM EDT ASSESSMENT/PLAN: 1. Hypermetropia of both eyes - ICD9: 367.0, ICD10: H52.03 (primary diagnosis) 2. Presbyopia - ICD9: 367.4, ICD10: H52.4 Continue to wear her glasses as desired. Continue to wear her contact lenses on a daily basis replacing with each use. Discussed trying new lovelace and she can order which she prefers. Recommended yearly exams. documented in this encounter [facility] 03-14-2022 History of Present illness Narrative ASSESSMENT/PLAN: 1. Hypermetropia of both eyes - ICD9: 367.0, ICD10: H52.03 (primary diagnosis) 2. Presbyopia - ICD9: 367.4, ICD10: H52.4 Continue to wear her glasses as desired. Continue to wear her contact lenses on a daily basis replacing with each use. Discussed trying new lovelace and she can order which she prefers. Recommended yearly exams. Kate Kelly OD documented in this encounter [facility] 02-18-2021 History of Present illness Narrative Patient: Alejandro Rodriguez Date of : 1955 (66 y.o.) PCP: Rosio Gallardo MD ASSESSMENT/PLAN: Alejandro Rodriguez 66 y.o. female with history of pain in the arch of the right foot consistent with plantar fasciitis. Overuse symptoms of the tibialis anterior and extensor hallucis longus tendons. Plan: Patient was instructed to return to her tennis shoes and orthotics for the right foot. I given patient stretching exercises the plantar fascia, meloxicam instructed her to ice the right foot down. Patient has a past cam walker boot which I have encouraged her to use for the tendinitis symptoms. Patient to reappoint in 2 weeks if not better will consider cortisone shot Assessment & plan notes cannot be loaded without a specified hospital service. SUBJECTIVE: History Since Last Visit: Patient is a 66-year-old female comes in the office status post medial displacement calcaneal osteotomy and posterior tibial tendon tear repair of 2 years duration. Patient relates recently in the last month or 2 the first few steps in the morning are very painful when she gets out of bed. Patient relates that it sore in the arch but also been getting symptoms in the extensor tendons of the dorsal right foot. Patient denies any history of injury or trauma. Patient does come in wearing sandals Review of Systems: GERD OBJECTIVE: Physical Examination: Integument-there are scars on the medial aspect of the posterior tibial tendon and lateral side of the right heel that are well-healed Neuro-no pain over the Baxters nerve or posterior tibial nerve on the right foot Musculoskeletal-patient has pain on palpation of the medial and central bands of the plantar fascial ligament on the right arch. No pain over the posterior tibial tendon no pain over the lateral side of the calcaneal body. Patient gets 10 degrees of dorsiflexion of the ankle. Patient had some mild symptoms over the tibialis anterior tendon and extensor hallucis longus tendon. The tuning fork did not bother patient over the first or second metatarsals. Vascular-DP and PT pulses are palpable on the right foot, capillary refill time is less than 3 seconds with the foot being warm to touch. BP 131/74 (BP Location: Left arm, Patient Position: Sitting, BP Cuff Size: Adult) Pulse 71 Temp 97 F (36.1 C) (Other (Comment)) Laboratory and Additional Data Reviewed: Reviewed:[id number]} XR Foot Right 3+ Views (Standard) Accession No: [id number] Performed: Jul 25 2018 8:32AM Examination: RIGHT FOOT EXAM TYPE: FOOT RIGHT EXAM DATE AND TIME: 07/25/2018 8:32 AM EST INDICATION: 63-year-old female with right calcaneal osteotomy. COMPARISON: None TECHNIQUE: 2 spot fluoroscopic images of the right calcaneus. 8 seconds of fluoroscopic time. FINDINGS/IMPRESSION: Postoperative changes of osteotomy through the posterior calcaneal body with posterior insertion of long fixation screw. Please see procedure note for further details. Interpreting Physician: NOEMY OLIVEIRA D.O. Trans: istumb : cc: MRI Lower Extremity Right Without Contrast Accession No: [id number] Performed: Jun 14 2018 5:20PM Examination: RIGHT MRI LOWER EXT W/O CONT HISTORY: Pain along the medial aspect of the right ankle and foot in the region of the arch of the foot for the past 3 months. Evaluate for posterior tibialis tendinitis. MRI LOWER EXT W/O CONT RIGHT: 06/14/2018 5:20 PM EST COMPARISON: None. TECHNIQUE: Axial proton density, T2, sagittal T1, STIR, and coronal proton density fat-saturated images of the right ankle were obtained. FINDINGS: LIGAMENTS: The anterior talofibular ligament appears within normal limits. The calcaneofibular ligament, posterior talofibular ligament, and distal tibiofibular ligaments appear within normal limits. The deltoid ligament complex appears within normal limits. TENDONS: There is an accessory peroneus quartus muscle and tendon, a developmental variant. There is evidence of moderate tendinopathy and a superimposed high-grade, longitudinal split tear of the posterior tibialis tendon extending from the level of the distal tibial metaphysis to its insertion on the navicular spanning approximately 6 cm in length. This is associated with a mild tenosynovitis. The other tendons of the ankle appear grossly within normal limits. SINUS TARSI AND TARSAL TUNNEL: No space-occupying mass is seen in the tarsal tunnel or the sinus tarsi. BONES AND JOINTS: The bone marrow signal intensity is age appropriate. No osteochondral defect of the tibiotalar joint is identified. There is moderate subcortical cystic change involving the body of the calcaneus adjacent to the angle of Gissane. There appear to be moderate degenerative changes at the articulation of the navicular with the medial cuneiform bone with mild adjacent subchondral bone marrow edema in the medial aspect of the navicular and subcortical cystic change and bone marrow edema within the medial cuneiform. 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 PLANTAR FASCIA: There is no abnormal thickening or abnormal signal intensity of the plantar fascia and there is no surrounding soft tissue edema to suggest plantar fasciitis. SOFT TISSUES: There is moderate soft tissue edema along the medial and lateral aspect of the ankle. IMPRESSION: 1. There is moderate tendinopathy and a superimposed high-grade, longitudinal split tear of the posterior tibialis tendon extending from the level of the distal tibial metaphysis to its insertion on the navicular spanning 6 cm in length and associated with a mild tenosynovitis. 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 2. There appear to be moderate degenerative changes at the articulation of the navicular with the medial cuneiform bone. 3. No ligament injury or osteochondral defect is seen. Interpreting Physician: SHALONDA ECHEVERRIA M.D. Trans: dw : cc: documented in this encounter [facility] documented as of this encounter (statuses as of 03/14/2022) [facility] History of Past illness Narrative* Problem Noted Date Diagnosed Date Resolved Date Other chronic allergic conjunctivitis 03/22/2014 03/16/2017 documented as of this encounter (statuses as of 03/09/2023) [facility] note* Diagnosis Pain of right foot- Primary Plantar fasciitis of right foot [facility] Diagnosis Hypermetropia of both eyes- Primary Hypermetropia Presbyopia documented in this encounter [facility] note* Diagnosis Ganglion [facility] of left foot- [facility]- [facility], [facility]- [facility] Diagnosis Pre-op testing Unspecified pre-operative examination Ganglion of foot, left Ganglion of foot, left- Primary Pre-op testing Unspecified pre-operative examination [facility]lion of foot, left [facility]* Diagnosis No post-op complications- Primary [facility] Diagnosis Infection of superficial incisional surgical site after procedure, initial encounter- Primary [facility]* Diagnosis Hypermetropia of both eyes- Primary Hypermetropia Presbyopia Vitreous floaters of both eyes Combined form of senile cataract of both eyes [facility] Ms. 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 Pt appears to be more extension biased, but based on low levels of pain and low irritability this date, was able to tolerate all positions well for HEP. Spent time on STM after eval due to myofascial restrictions noted in B/L hip and pelvis musculature, with good response from pt. Pt edu on body mechanics and self-release techniques with good understanding noted. HEP HO given and verbally reviewed with good understanding noted. They would benefit from skilled Physical Therapy with combination of manual therapy techniques to decrease myofascial and joint restrictions, as well as progression of exercises for ROM, flexibility, strength, core stabilization, and glute retraining, and body mechanics education throughout POC to progress towards independence with ADL s/IADL s and return to PLOF. * Clinical Presentation: Stable and/or uncomplicated characteristics. * Level of Complexity: low * Problem List: activity limitations, ADLs/IADLs/self care skills, decreased functional level, fall risk, flexibility, gait/locomotion, motor function/control/tone, pain, participation restrictions, posture, range of motion/joint mobility and strength. [facility] Work Phone: History of Present illness Narrative* Reviewed HEP this date at start of session. * Tightness on the L > R with addition of LTR. * Tightness along the Piriformis and QL with STW. * Re-educated in use of tennis ball for STW mobilization as part of HEP. * MET correction not needed d/t equal alignment. [facility] [employer] Work Phone: History of Present illness Narrative* Completed new DLS this date with patient liking the the hip ADD. * Tightness along B/L piriformis regions during STW. * Improved trunk flexibility with LTR. * Issued new HEP from [facility]. [facility] [employer] Work Phone: Hishvgi of Present illness Narrative* Progress to standing PRE's this date. * Fatigues quickly with standing hip ext. * Improved transfers with decreased guarding. [facility] [employer] Work Phone: History of Present illness Narrative* Tenderness along the L piriformis and glute this date. * Improved flexibility this date with SKTC. * Mildly antalgic gait observed this date in the clinic. [facility] [employer] Work Phone: History of Present illness Narrative* Decreased overall guarding during gait and transfers this date. * Continues with tightness along the L glute/piriformis and ITB with STW. * Fatigues quickly with SLR. [facility] Work Phone: Hisdsug of Present illness Narrative* Pt reassessed this date by supervising PT with improvements noted with subjective report on GAL score decreasing from 22% disability to 8% disability. Pt reports improvements in standing tolerance aswell. Compliance with HEP so far. Pt reported good understanding of all edu and updates to HEP madethis date and is appropriate to attempt independence with HEP and symptom management at this time. Improvements in MMT this date compared to eval. * Response to treatment: no change in pain. [facility] [employer] Work Phone: Reason for visit NarrativeInitial Evaluation . [facility]. [facility] Work Phone: Summary Purpose Family History No Family History Records FoundNo Family History Records FoundNo Family History Records FoundNo Family History Records FoundNo Family History Records FoundNo Family History Records FoundNo Family History Records FoundNo Family History Records Found Advance Directives No Advanced Directives Records FoundDocuments on File Type Date Recorded Patient Residence Life Coordinator Expl anation Advance Directives and Living Will Latest Code Status on File Code Status Date Activated Date Inactivated Comments Full Code 11/02/2022 10:56 AM 11/02/2022 1:25 PM Procedure Findings Note [facility] [address], [place] [address]HFET ALEJANDRO RODRIGUEZ [facility] [id number] 3DATE 07/25/2018OPERATIVE REPORT / PROCEDURE NOTESURGEON MONA HUMPHRIES, DPMANESTHESIAGeneral.PREOPERATIVE DIAGNOSES1. Calcaneal valgus of the right heel.2. Torn posterior tibial tendon, right foot.POSTOPERATIVE DIAGNOSES1. Calcaneal valgus of the right heel.2. Torn posterior tibial tendon, right foot.OPERATIONS1. Medial displacement calcaneal osteotomy, right foot.2. Primary repair of posterior tibial tendon tear.3. Application of below- knee nonweightbearing cast.INDICATIONSPatient is a 63-year-old female who has had a painful torn posterior tibialtendon on her right foot for many weeks duration. She has undergoneconservative therapy, which has failed to provide her with relief. Thepatient explained risks and complications involved with surgery and desiredsurgical correction of above-mentioned deformities at this time. The consentwas signed preoperatively (more content not included)... Medications Administered Section Inactive Administered Medications - up to 3 most recent administrations Medication Order MAR Action Action Date Dose Rate Site tropicamide 0.5 % 1 Drop (MYDRIACYL) 1 Drop, BOTH EYES, ONCE, 1 dose, On 03/14/22 at 1230, FOR THE EYE Given 03/14/2022 12:30 PM EDT 1 Drop Additional Source Comments INFORMATION SOURCE (unrecogn ized section and content) DATE CREATED AUTHOR AUTHOR'S ORGANIZ ATION 10/24/2018 [facility] DATE CREATED AUTHOR AUTHOR'S ORGANIZ ATION 08/21/2021 [facility] DATE CREATED AUTHOR AUTHOR'S ORGANIZ ATION 04/19/2022 [employer] DATE CREATED AUTHOR AUTHOR'S ORGANIZ ATION 04/20/2022 [facility] DATE CREATED AUTHOR AUTHOR'S ORGANIZ ATION 11/12/2022 [facility] DATE CREATED AUTHOR AUTHOR'S ORGANIZ ATION 11/30/2022 [facility] DATE CREATED AUTHOR AUTHOR'S ORGANIZ ATION 03/10/2023 [facility] Reason for Visit (unrecogniz ed section and content) Reason Comments Yearly Exam Contact lens evaluation Reason Comments Foot Problem L foot lump x severa l months - pt states that the lump is uncomfortable when wearing shoes Reason Comments Wound Check Pathology results. Reason Comments Follow-up L foot ganglion cyst - pt states that the cyst has come back Reason Comments Pre-op Exam H & P Reason Comments Post-op L foot ganglion cyst excision - pt is doing well Reason Comments Post-op Post op left foot. P ossible suture removal. <item><item> Privacy Markings (unrecogniz ed section and content) Section Author: Paulina Frederick PROHIBITION ON REDISCLOSURE OF CONFIDENTIAL INFORMATION This notice accompanies a disclosure of information concerning a client made to you with the consent of such client. Section Author: Paulina Frederick PROHIBITION ON REDISCLOSURE OF CONFIDENTIAL INFORMATION This notice accompanies a disclosure of information concerning a client made to you with the consent of such client. Source Comments (unrecognize d section and content) In the event this informatio n is protected by the Federal Confidentiality of Alcohol and Drug Abuse Patient Records regulations: The Federal rules restrict any use of the information to criminally investigate or prosecute any alcohol or drug abuse patient.[facility] the event this information is protected by the Federal Confidentiality of Alcohol and Drug Abuse Patient Records regulations: The Federal rules restrict any use of the information to criminally investigate or prosecute any alcohol or drug abuse patient.[facility] Care Teams (unrecognized sec tion and content) Rib Trim Separator Relationship Specialty Start Date End Date Rosio Gallardo Chi, MD [address] [address] PCP - General Geriatric Medicine 02/18/21 Rib Trim Separator Relationship Specialty Start Date End Date Rosio Gallardo Chi, MD [address] [facility] [address] [place] [address] PCP - General Geriatric Medicine 02/18/21 Rib Trim Separator Relationship Specialty Start Date End Date Rosio Gallardo Chi, MD [address] [facility] [address] [place] [address] PCP - General Geriatric Medicine 02/18/21 Rib Trim Separator Relationship Specialty Start Date End Date Rosio Gallardo Chi, MD [address] [facility] [address] [place] [address] PCP - General Geriatric Medicine 02/18/21 Rib Trim Separator Relationship Specialty Start Date End Date Rosio Gallardo Chi, MD [address] [facility] [address] [place] [address] PCP - General Geriatric Medicine 02/18/21 Rib Trim Separator Relationship Specialty Start Date End Date Rosio Gallardo Chi, MD [address] [facility] [address] [place] [address] PCP - General Geriatric Medicine 02/18/21 Rib Trim Separator Relationship Specialty Start Date End Date Rosio Gallardo Chi PCP - General Family Medicine 01/31/13 FOR RECORDS PERTAINING TO PATIENTS WHO ARE OR HAVE BEEN ENROLLED IN A CHEMICAL DEPENDENCY/SUBSTANCEABUSE PROGRAM, SOME INFORMATION MAY BE OMITTED. This clinical summary was aggregated from multiple sources. Caution should be exercised in using it in the provision of clinical care. This summary normalizes information from multiple sources, and as a consequence, information in this document may materially change the coding, format and clinical context of patient data. In addition, data may be omitted in some cases. CLINICAL DECISIONS SHOULD BE BASED ON THE PRIMARY CLINICAL RECORDS. [facility]. provides no warranty or guarantee of the accuracy or completeness of information in this document.
[2023-08-22 12:51] LABS: Absolute Lymphocyte Count 1.22 X10^3/uL (0.83-4.51); Absolute Neutrophil Count 5.6 X10^3/uL (2.0-7.7); Basophil# 0.04 X10^3/uL; Basophil% 0.5 % (0-1); Eosinophil# 0.19 X10^3/uL; Eosinophils% 2.4 % (0-5); Hematocrit 40.1 % (37-47); Hemoglobin 12.9 g/dL (12.0-15.0); Lymphocyte # 1.22 X10^3/ul (0.83-4.51); Lymphocyte % 15.7 % (19-41); Mean Corp Hgb Conc 32.2 g/dL (32-36); Mean Corpuscular Hgb 33.9 pg (27.0-32.0); Mean Corpuscular Volume 105.5 fL (81-99); Mean Platelet Vol. 11.3 fl (6.2-12.0); Monocyte# 0.68 X10^3/uL; Monocyte% 8.8 % (0-10); NRBC Flagged by Analyzer 0 % (0-5); Neutrophil % 72.2 % (47-70); Platelet Count 233 K/mm3 (150-450); RBC Distribution Width CV 13.9 % (11.6-14.6); RBC Distribution Width SD 53.6 fl (35.1-43.9); White Blood Count 7.8 K/mm3 (4.4-11.0)
[2023-08-22 13:06] LABS: Vitamin D,25 Hydroxy 57.9 ng/mL
[2023-08-22 13:21] LABS: ALB/GLOB Ratio 0.8 RATIO (0.9-2.4); AST(SGOT) 100 U/L (15-37); Alanine Aminotransfer ALT/SGPT 93 U/L (13-56); Albumin, Serum 3.6 g/dL (3.2-5.0); Alkaline Phosphatase 77 U/L (45-117); Anion Gap 9 (5-15); BUN 12 mg/dL (7-18); BUN/Creat Ratio 11.3 RATIO (10-20); Calcium,Total 9.7 mg/dL (8.5-10.1); Chloride 103 mmol/L (98-107); Creatinine, Serum 1.06 mg/dL (0.55-1.02); EST Glomerular Filtration Rate 54 mL/min (>60); Est Glom Filt Rate - Afr Amer 66 mL/min (>60); Globulin 4.5 g/dL (2.2-4.2); Glucose 117 mg/dL (74-106); Potassium 4.7 mmol/L (3.5-5.1); Protein, Total 8.1 g/dL (6.4-8.2); Sodium Level 138 mmol/L (136-145)
== END | disposition home or self-care (01) ==
PROVIDERS: PCP Family Medicine Geriatric Medicine; Visit Provider Family Medicine Geriatric Medicine
DX: I10 Essential (primary) hypertension (principal); E55.9 Vitamin D deficiency, unspecified
CPT/HCPCS: 36415; 80053; 82306; 84443; 85025

== ENCOUNTER → 2023-09-04 | Outpatient (CLI) | payer MEDICARE, SELFPAY ==
--- NOTE | 2023-09-04 08:48 | RAD_ITS ---
INDICATION: Chronic Cough EXAMINATION/TECHNIQUE: X-RAY - XR Chest 2 Views COMPARISON: February 21, 2022 FINDINGS: LINES/DEVICES: None. LUNGS: No consolidation, edema or effusion. No pneumothorax. MEDIASTINUM AND CARDIOVASCULAR STRUCTURES: Cardiac silhouette not enlarged. Central airways and mediastinal contour are unremarkable. BONES AND SOFT TISSUES: Unremarkable. RAD/Chest PA and Lateral IMPRESSION: No radiographic evidence of acute cardiopulmonary disease. Electronically Signed: Theodore Weeks DO at 23:09 EST ,
--- OUTSIDE RECORDS SUMMARY | 2023-09-04 09:05 | XMS RPT_ITS | CCD ---
Author Name Unknown Address [address] [place] [address] Organization [facility] Care Team Providers Care Hog Trader Name Role Phone No, Physician Unavailable Unavailable [...] Gallardo MD, Rosio Mccormack Primary Care Provider Martita, Sylvia Unavailable Priyanka Plascencia Unavailable Unavailable Brayan Pennington Unavailable Unavailable Rosio Gallardo Chi Primary Care Provider [phone] Martita, JorgeChi Unavailable Martita, Dr. Ward Primary [...] Unavailable Omari Castro Attending Unavailable Dr. Martita [facility] Primary Care Unavailable Omari Castro Attending Unavailable Martita PENA, [facility] Primary Care Provider [phone] CHAIM FRANKLIN Attending Unavailab le MARTITA, [facility] Primary Care Unavailable HUMPHRIESMONA ZENG Admitting Unavaila ble HUMPHRIESMONA Admitting Unavaila ble HUMPHRIESMONA ZENG Attending Unavaila ble MARTITA, [facility] Primary Care Unavailable MARTITA, ROSIO CHI Primary Care Unavailable HUMPHRIESMONA Attending Unavaila ble MARTITA, ROSIO CHI Primary Care Unavailable HUMPHRIESMONA ZENG Attending Unavaila ble MARTITA, [facility] Primary Care Unavailable HUMPHRIESMONA ZENG Attending Unavaila ble MARTITA, [facility] Primary Care Unavailable HUMPHRIES, MONA HUTSON Attending Unavaila ble MARTITA, [facility] Primary Care Unavailable HUMPHRIESMONA ZENG Attending Unavaila ble MARTITA, [facility] Primary Care Unavailable HUMPHRIESMONA ZENG Attending Unavaila ble MARTITA, [facility] Primary Care Unavailable HUMPHRIESMONA ZENG Attending Unavaila ble MARTITA, [facility] Primary Care Unavailable MONA HUMPHRIES Referring Unavaila ble MONA HUMPHRIES Admitting Unavaila ble Martita, [facility] Primary Care Provider [phone] MARTITA, [facility] Primary Care Unavailable TE KELLY II Attending Unavailabl e MARTITA, [facility] Primary Care Unavailable KATE KELLY Attending Unavailabl e Allergies Allergy Classification Reported Allergen(s) Allergy Type Date of Onset Reaction(s) Facility Unclassified (10 sources) Insect Venom; Translations: [INSECT VENOM] Propensity to adverse reactions to drug 1 Anaphylaxis [facility] (11 sources) Hornet venom; Translations: [HORNET VENOM] Drug Allergy 7 Anaphylaxis [facility] (3 sources) Insects; Translations: [INSECTS] Allergy to substance 4 Anaphylaxis [facility] (3 sources) Wasps; Translations: [WASPS] Allergy to substance 7 Anaphylaxis [facility] (3 sources) Yellowjackets; Translations: [YELLOWJACKETS] Allergy to substance 7 Anaphylaxis [facility] (8 sources) wasp venom; Translations: [WASP VENOM] Propensity to adverse reactions to drug 7 Anaphylaxis [facility] Medications Current Medications Medication Drug Class(es) Dates [...] Drug Class(es) Dates Sig (Normalized) Sig (Original) [id number] 200 actuat albuterol 0.09 mg/actuat metered dose [...] 98.6 [degF] Mona Humphries DPM Work Phone: [facility] 11-17-2022 16:05-0400 Diastolic blood pressure 83 mm[Hg] Mona Humphries DPM Work Phone: [facility] 11-17-2022 16:05-0400 Heart rate 57 /min Mona Humphries DPM Work Phone: [facility] 11-17-2022 16:05-0400 Systolic blood pressure 160 mm[Hg] Mona Humphries DPM Work Phone: [facility] 11-10-2022 15:44-0400 Diastolic blood pressure 86 mm[Hg] Mona Humphries DPM Work Phone: [facility] 11-10-2022 15:44-0400 Heart rate 59 /min Mona Humphries DPM Work Phone: [facility] 11-10-2022 15:44-0400 Systolic blood pressure 172 mm[Hg] Mona Humphries DPM Work Phone: [facility] 11-10-2022 15:35-0400 Body temperature 98.49 [degF] Mona Humphries DPM Work Phone: [facility] 10-28-2022 12:57-0400 Body temperature 97.59 [degF] Monalokesh BazanHumphries DPM Work Phone: [facility] 10-28-2022 12:57-0400 Diastolic blood pressure 112 mm[Hg] Mona Humphries DPM Work Phone: [facility] 10-28-2022 12:57-0400 Heart rate 71 /min Mona Humphries DPM Work Phone: [facility] 10-28-2022 12:57-0400 Systolic blood pressure 158 mm[Hg] Mona Humphries DPM Work Phone: [facility] 10-13-2022 15:48-0500 Diastolic blood pressure 85 mm[Hg] Mona Humphries DPM Work Phone: [facility] 10-13-2022 15:48-0500 Heart rate 61 /min Mona Humphries DPM Work Phone: [facility] 10-13-2022 15:48-0500 Systolic blood pressure 135 mm[Hg] Mona Humphries DPM Work Phone: [facility] 10-13-2022 15:41-0500 Body temperature 97.2 [degF] Mona Humphries DPM Work Phone: [facility] 08-18-2022 16:09-0500 Diastolic blood pressure 90 mm[Hg] Mona Humphries DPM Work Phone: [facility] 08-18-2022 16:09-0500 Systolic blood pressure 140 mm[Hg] Mona Humphries DPM Work Phone: [facility] 08-18-2022 15:47-0500 Body temperature 97.3 [degF] Mona Humphries DPM Work Phone: [facility] 07-21-2022 17:07-0500 Diastolic blood pressure 111 mm[Hg] Mona Humphries DPM Work Phone: [facility] Encounters Encounter Date Encounter Type Care Provider Facility Start: 03-09-2023 End: 03-09-2023 ambulatory ROSIO CHI MARTITA Facility:[facility] Start: 03-09-2023 End: 03-09-2023 Patient encounter procedure [...] Author Start: 09-01-2023 Influenza vaccination INFLUENZA (#1) [facility] Start: 12-01-2022 End: 12-01-2022 Patient encounter procedure 12/01/2022 3:45 PM EDT Office Visit [facility] [address] [place] [address] Mona Humphries, MARY [address] [place] [address] [facility] Start: 11-17-2022 End: 11-17-2022 Patient encounter procedure 11/17/2022 4:15 PM EDT Office Visit [facility] [address] [place] [id number] Mona Humphries, MARY [address] [place] [address] [facility] Start: 11-10-2022 End: 11-10-2022 Follow-up encounter 11/10/2022 Follow-Up Podiatry Mona Humphries DPM [address] [place] [address] [facility] Start: 11-02-2022 End: 11-02-2022 Admission to same day surgery center 11/02/2022 Surgery Mona Humphries DPM [address] [place] [address] GANGLIONECTOMY left foot [facility] [place] [facility] Immunizations Immunization Date Immunization Notes Care Provider Fa cili 06-07-2017 influenza, seasonal, injectable Kate Kelly OD Work Phone: [facility] 08-07-2013 pneumococcal polysaccharide vaccine, 23 valent Kate Kelly OD Work Phone: [facility] Work Phone: Payers Date Payer Category Payer Unknown [id number] 2015 Unknown [id number] 2015 Unknown [employer] PPO [id number] 2015-Present [id number] 2015 Unknown 1953 Unknown [id number] 2.16.840.1.378215.3.579.2.651 1953 Unknown [id number] 2.16.840.1.493561.3.579.2.1068 1953 Unknown [id number] 2.16.840.1.673928.3.579.2.1068 1953 Unknown [id number] 2.16.840.1.407976.3.579.2.1068 1953 Unknown [id number] 2.16.840.1.058855.3.579.2.1068 1953 Unknown [id number] 2.16.840.1.109614.3.579.2.1068 1953 Unknown [id number] 2.16.840.1.852017.3.579.2.1068 1953 Unknown [id number] 2.16.840.1.376558.3.579.2.1068 1953 Unknown [id number] 2.16.840.1.690428.3.579.2.1068 1953 Unknown [id number] 2.16.840.1.285334.3.579.2.1068 1953 Unknown [id number] 2.16.840.1.690888.3.579.2. 1953 Unknown [id number] 2.16.840.1.158823.3.579.2. 1953 Unknown [id number] 2.16.840.1.865750.3.579.2.903 1953 Unknown [id number] 2.16.840.1.077429.3.579.2.903 1953 Unknown [id number] 2.16.840.1.563294.3.579.2.903 1953 Unknown [id number] 2.16.840.1.171022.3.579.2. 1953 Unknown [id number] 2.16.840.1.689367.3.579.2. 1953 Unknown [id number] 2.16.840.1.120357.3.579.2. 1953 Unknown [id number] 2.16.840.1.354118.3.579.2.3 1953 Unknown [id number] 2.16.840.1.771108.3.579.2. Social History Date Type Detail Facility Tobacco smoking status OKIS Unknown if ever smoked [facility] Start: 1955 Sex Assigned At Not on file [facility] Start: 03-22-2014 End: 02-18-2021 Tobacco smoking status OKIS Never smoker [facility] Start: 03-22-2014 End: 02-18-2021 Tobacco use and exposure Never used [facility] Start: 02-18-2021 End: 03-09-2023 Alcohol intake Current drinker of alcohol (finding) [facility] Start: 02-18-2021 Alcohol Comment Socially [facility] Start: 03-04-2022 End: 11-17-2022 Exposure to SARS-CoV-2 (event) Not sure [facility] Tobacco smoking consumption unknown [facility] Start: 03-14-2022 End: 03-09-2023 Alcohol intake [facility] Start: 03-22-2014 History SDOH Alcohol Comment weekly [facility] Start: 11-03-2022 End: 03-09-2023 Tobacco use panel [facility] National Score (1-100), lower number is lower risk 71 [facility] Clinical Notes 03-22-2014 to 03-09-2023 Patient InstructionsTe Kelly II, OD - 03/09/2023 10:34 AM EDForest Humphries, DPM - 11/17/2022 4:52 PM EDForest Humphries, MARY - 11/10/2022 4:22 PM EDTPatient Instructions Note Date & Type Note Facility 03-09-2023 Note HNO ID: [id number] Author: Te Kelly II, OD Service: ? Author Type: FAMILY DAY CARER Type: Progress Notes Filed: 03/09/2023 10:37 AM [...] its relevant components. Te Kelly II, OD [facility] 03-09-2023 Instructions Te Kelly II, OD [...] Kelly II, OD documented in this encounter [facility] 03-09-2023 History of Present illness Narrative [...] Kelly II, OD documented in this encounter [facility] 11-17-2022 History of Present illness Narrative [...] C) (Infrared) Laboratory and Additional Data Reviewed: Reviewed:[id number]} ECG 12 Lead Sinus bradycardia with sinus arrhythmia Rightward axis Low voltage QRS Borderline ECG Confirmed by Stef Muro MD ([id number]) on 10/30/2022 10:04:47 AM documented in this encounter [facility] 11-10-2022 History of Present illness Narrative Patient: [...] C) (Infrared) Laboratory and Additional Data Reviewed: Reviewed:[id number]} ECG 12 Lead Sinus bradycardia with sinus arrhythmia Rightward axis Low voltage QRS Borderline ECG Confirmed by Stef Muro MD ([id number]) on 10/30/2022 10:04:47 AM documented in this encounter [facility] 10-28-2022 History of Present illness Narrative Podiatry [...] 1:17 PM: Medications documented in this encounter [facility] 10-13-2022 History of Present illness Narrative Patient: [...] C) (Infrared) Laboratory and Additional Data Reviewed: Reviewed:[id number]} XR Foot Left 3+ Views (Standard) X-rays 3 views left foot: There is a screw in the first metatarsal of a well-healed osteotomy. Patient does have some joint space narrowing of the first metatarsal phalange joint and tarsometatarsal joints. documented in this encounter [facility] 08-18-2022 History of Present illness Narrative Patient: Aleajndro Rodriguez Date of : 1955 (67 y.o.) [...] C) (Infrared) Laboratory and Additional Data Reviewed: Reviewed:[id number]} XR Foot Left 3+ Views (Standard) X-rays 3 views left foot: There is a screw in the first metatarsal of a well-healed osteotomy. Patient does have some joint space narrowing of the first metatarsal phalange joint and tarsometatarsal joints. documented in this encounter [facility] 07-21-2022 History of Present illness Narrative Patient: [...] C) (Infrared) Laboratory and Additional Data Reviewed: Reviewed:[id number]} XR Foot Right 3+ Views (Standard) X-rays 3 views right foot: Patient has screw fixation from previous calcaneal osteotomy which is well-healed, pins in the first metatarsal and second toe from previous bunion and second hammertoe. Patient has no signs of inferior calcaneal heel spur and no signs of stress fracture of the first through 5 metatarsals documented in this encounter [facility] 03-14-2022 Note HNO ID: [id number] Author: Kate Kelly OD Service: ? Author Type: FAMILY DAY CARER Type: Progress Notes Filed: 03/14/2022 12:23 PM [...] prefers. Recommended yearly exams. Kate Kelly OD [facility] 03-14-2022 Instructions Kate Kelly OD - [...] Recommended yearly exams. documented in this encounter [facility] 03-14-2022 History of Present illness Narrative [...] Kate Kelly OD documented in this encounter [facility] 02-18-2021 History of Present illness Narrative [...] (Other (Comment)) Laboratory and Additional Data Reviewed: Reviewed:[id number]} XR Foot Right 3+ Views (Standard) Accession No: [id number] Performed: Jul 25 2018 8:32AM Examination: [...] Lower Extremity Right Without Contrast Accession No: [id number] Performed: Jun 14 2018 5:20PM Examination: [...] dw : cc: documented in this encounter [facility] documented as of this encounter (statuses as of 03/14/2022) [facility] History of Past illness Narrative* Problem Noted Date Diagnosed Date Resolved Date Other chronic allergic conjunctivitis 03/22/2014 03/16/2017 documented as of this encounter (statuses as of 03/09/2023) [facility] note* Diagnosis Pain of right foot- Primary Plantar fasciitis of right foot [facility] Diagnosis Hypermetropia of both eyes- Primary Hypermetropia Presbyopia documented in this encounter [facility] note* Diagnosis Ganglion cyst of left foot- [facility], left- [facility], left- [facility] Diagnosis Pre-op testing Unspecified pre-operative examination Ganglion of foot, left Ganglion of foot, left- Primary Pre-op testing Unspecified pre-operative examination Ganglion of foot, left [facility]* Diagnosis No post-op complications- Primary [facility] Diagnosis Infection of superficial incisional surgical site after procedure, initial encounter- Primary [facility]* Diagnosis Hypermetropia of both eyes- Primary Hypermetropia Presbyopia Vitreous floaters of both eyes Combined form of senile cataract of both eyes [facility]* Ms. RODRIGUEZ [...] range of motion/joint mobility and strength. [facility] Work Phone: History of Present illness Narrative* Reviewed HEP this date at start of session. * Tightness on the L > R with addition of LTR. * Tightness along the Piriformis and QL with STW. * Re-educated in use of tennis ball for STW mobilization as part of HEP. * MET correction not needed d/t equal alignment. [facility] [employer] Work Phone: History of Present illness Narrative* Completed new DLS this date with patient liking the the hip ADD. * Tightness along B/L piriformis regions during STW. * Improved trunk flexibility with LTR. * Issued new HEP [facility]. [facility] Work Phone: Hisetag of Present illness Narrative* Progress to standing PRE's this date. * Fatigues quickly with standing hip ext. * Improved transfers with decreased guarding. [facility] [employer] Work Phone: History of Present illness Narrative* Tenderness along the L piriformis and glute this date. * Improved flexibility this date with SKTC. * Mildly antalgic gait observed this date in the clinic. [facility] [employer] Work Phone: History of Present illness Narrative* Decreased overall guarding during gait and transfers this date. * Continues with tightness along the L glute/piriformis and ITB with STW. * Fatigues quickly with SLR. [facility] Work Phone: Hishqjx of Present illness Narrative* Pt reassessed this [...] Response to treatment: no change in pain. 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 Advance Directives and Living Will Latest Code Status on File Code Status Date Activated Date Inactivated Comments Full Code 11/02/2022 10:56 AM 11/02/2022 1:25 PM Procedure Findings Note [facility] [address], [place] [address]BBVE ALEJANDRO RODRIGUEZ [facility] [id number] 3DATE 07/25/2018OPERATIVE REPORT / PROCEDURE NOTESURGEON MONA [...] DATE CREATED AUTHOR AUTHOR'S ORGANIZ ATION 10/24/2018 [facility] DATE CREATED AUTHOR AUTHOR'S ORGANIZ ATION 08/21/2021 [facility] DATE CREATED AUTHOR AUTHOR'S ORGANIZ ATION 04/19/2022 [facility] DATE CREATED AUTHOR AUTHOR'S ORGANIZ ATION 04/20/2022 [facility] DATE CREATED AUTHOR AUTHOR'S ORGANIZ ATION 11/12/2022 [facility] DATE CREATED AUTHOR AUTHOR'S ORGANIZ ATION 11/30/2022 [facility] DATE CREATED AUTHOR AUTHOR'S ORGANIZ ATION 03/10/2023 [facility] Reason for Visit (unrecogniz ed section [...] or prosecute any alcohol or drug abuse patient.[facility] the event this information is protected by the Federal Confidentiality of Alcohol and Drug Abuse Patient Records regulations: The Federal rules restrict any use of the information to criminally investigate or prosecute any alcohol or drug abuse patient.[facility] Care Teams (unrecognized sec tion and content) Hog Trader Relationship Specialty Start Date End Date Rosio Gallardo Chi, MD [address] [address] PCP - General Geriatric Medicine 02/18/21 Hog Trader Relationship Specialty Start Date End Date Rosio Gallardo Chi, MD [address] [facility] [address] [place] [address] PCP - General Geriatric Medicine 02/18/21 Hog Trader Relationship Specialty Start Date End Date Rosio Gallardo Chi, MD [address] [facility] [address] [place] [address] PCP - General Geriatric Medicine 02/18/21 Hog Trader Relationship Specialty Start Date End Date Rosio Gallardo Chi, MD [address] [facility] [address] [place] [address] PCP - General Geriatric Medicine 02/18/21 Hog Trader Relationship Specialty Start Date End Date Rosio Gallardo Chi, MD [address] [facility] [address] [place] [address] PCP - General Geriatric Medicine 02/18/21 Hog Trader Relationship Specialty Start Date End Date Rosio Gallardo Chi, MD [address] [facility] [address] [place] [address] PCP - General Geriatric Medicine 02/18/21 Hog Trader Relationship Specialty Start Date End Date Rosio [...] BE BASED ON THE PRIMARY CLINICAL RECORDS. [employer] [facility]. provides no warranty or guarantee of the accuracy or completeness of information in this document.
== END | disposition home or self-care (01) ==
PROVIDERS: PCP Family Medicine Geriatric Medicine; Referring Provider Internal Medicine Critical Care Medicine; Visit Provider Internal Medicine Critical Care Medicine
DX: R05.3 Chronic cough (principal)
CPT/HCPCS: 71046

== ENCOUNTER → 2023-09-21 | Outpatient (CLI) | payer MEDICARE, SELFPAY ==
[2023-09-21] MEDS: Methacholine Chloride 18 ml neb kit INHALATION (12:46)
--- NOTE | 2023-09-21 13:12 | CPS ---
Patient had 24% drop in FEV1 on 4th dose. Stopped giving Methacholine per protocol and gave Albuterol neb treatment. Disposed of last two doses of Methacholine in [facility] waste bin.
--- OUTSIDE RECORDS SUMMARY | 2023-09-21 18:50 | XMS RPT_ITS | CCD ---
Author Name Unknown Address [address] [place] [address] Organization [facility] Care Team Providers Care Principal Clerk Name Role Phone No, Physician Unavailable Unavailable [...] Unavailable Rosio Gallardo Chi Primary Care Provider [phone] Martita, JorgeChi Unavailable Martita, Dr. Ward Primary [...] Unavailable Omari Castro Attending Unavailable Dr. Martita [facility] Primary Care Unavailable Omari Castro Attending Unavailable Martita PENA, [facility] Primary Care Provider CHAIM FRANKLIN Attending Unavailab le MARTITA, [facility] Primary Care Unavailable HUMPHRIESMONA ZENG Admitting Unavaila ble HUMPHRIESMONA Admitting Unavaila ble HUMPHRIESMONA ZENG Attending Unavaila ble MARTITA, [facility] Primary Care Unavailable MARTITA, ROSIO CHI Primary Care Unavailable HUMPHRIESMONA Attending Unavaila ble MARTITA, ROSIO CHI Primary Care Unavailable HUMPHRIESMONA ZENG Attending Unavaila ble MARTITA, [facility] Primary Care Unavailable HUMPHRIESMONA ZENG Attending Unavaila ble MARTITA, [facility] Primary Care Unavailable HUMPHRIES, MONA HUTSON Attending Unavaila ble MARTITA, [facility] Primary Care Unavailable HUMPHRIESMONA ZENG Attending Unavaila ble MARTITA, [facility] Primary Care Unavailable HUMPHRIESMONA ZENG Attending Unavaila ble MARTITA, [facility] Primary Care Unavailable HUMPHRIESMONA ZENG Attending Unavaila ble MARTITA, [facility] Primary Care Unavailable MONA HUMPHRIES Referring Unavaila ble MONA HUMPHRIES Admitting Unavaila ble Martita, [facility] Primary Care Provider MARTITA, [facility] Primary Care Unavailable TE KELLY II Attending Unavailabl e MARTITA, [facility] Primary Care Unavailable KATE KELLY Attending Unavailabl e Allergies Allergy Classification Reported Allergen(s) Allergy Type Date of Onset Reaction(s) Facility Unclassified (10 sources) Insect Venom; Translations: [INSECT VENOM] Propensity to adverse reactions to drug 1 Anaphylaxis [facility] (11 sources) Hornet venom; Translations: [HORNET VENOM] Drug Allergy 7 Anaphylaxis [facility] (3 sources) Insects; Translations: [INSECTS] Allergy to substance 4 Anaphylaxis [facility] (3 sources) Wasps; Translations: [WASPS] Allergy to substance 7 Anaphylaxis [facility] (3 sources) Yellowjackets; Translations: [YELLOWJACKETS] Allergy to substance 7 Anaphylaxis [facility] (8 sources) wasp venom; Translations: [WASP VENOM] Propensity to adverse reactions to drug 7 Anaphylaxis [facility] Medications Current Medications Medication Drug Class(es) Dates [...] Drug Class(es) Dates Sig (Normalized) Sig (Original) [id number] actuat albuterol 0.09 mg/actuat metered dose [...] 98.6 [degF] Mona Humphries DPM Work Phone: [facility] 11-17-2022 16:05-0400 Diastolic blood pressure 83 mm[Hg] Mona Humphries DPM Work Phone: [facility] 11-17-2022 16:05-0400 Heart rate 57 /min Mona Humphries DPM Work Phone: [facility] 11-17-2022 16:05-0400 Systolic blood pressure 160 mm[Hg] Mona Humphries DPM Work Phone: [facility] 11-10-2022 15:44-0400 Diastolic blood pressure 86 mm[Hg] Mona Humphries DPM Work Phone: [facility] 11-10-2022 15:44-0400 Heart rate 59 /min Mona Humphries DPM Work Phone: [facility] 11-10-2022 15:44-0400 Systolic blood pressure 172 mm[Hg] Mona Humphries DPM Work Phone: [facility] 11-10-2022 15:35-0400 Body temperature 98.49 [degF] Mona Humphries DPM Work Phone: [facility] 10-28-2022 12:57-0400 Body temperature 97.59 [degF] Monalokesh BazanHumphries DPM Work Phone: [facility] 10-28-2022 12:57-0400 Diastolic blood pressure 112 mm[Hg] Mona Humphries DPM Work Phone: [facility] 10-28-2022 12:57-0400 Heart rate 71 /min Mona Humphries DPM Work Phone: [facility] 10-28-2022 12:57-0400 Systolic blood pressure 158 mm[Hg] Mona Humphries DPM Work Phone: [facility] 10-13-2022 15:48-0500 Diastolic blood pressure 85 mm[Hg] Mona Humphries DPM Work Phone: [facility] 10-13-2022 15:48-0500 Heart rate 61 /min Mona Humphries DPM Work Phone: [facility] 10-13-2022 15:48-0500 Systolic blood pressure 135 mm[Hg] Mona Humphries DPM Work Phone: [facility] 10-13-2022 15:41-0500 Body temperature 97.2 [degF] Mona Humphries DPM Work Phone: [facility] 08-18-2022 16:09-0500 Diastolic blood pressure 90 mm[Hg] Mona Humphries DPM Work Phone: [facility] 08-18-2022 16:09-0500 Systolic blood pressure 140 mm[Hg] Mona Humphries DPM Work Phone: [facility] 08-18-2022 15:47-0500 Body temperature 97.3 [degF] Mona Humphries DPM Work Phone: [facility] 07-21-2022 17:07-0500 Diastolic blood pressure 111 mm[Hg] Mona Humphries DPM Work Phone: [facility] Encounters Encounter Date Encounter Type Care Provider Facility Start: 03-09-2023 End: 03-09-2023 ambulatory ROSIO CHI MARTITA Facility:[facility] Start: 03-09-2023 End: 03-09-2023 Patient encounter [...] Author Start: 09-01-2023 Influenza vaccination INFLUENZA (#1) [facility] Start: 12-01-2022 End: 12-01-2022 Patient encounter procedure 12/01/2022 3:45 PM EDT Office Visit [facility] [address] [place] [address] Mona Humphries, MARY [address] [place] [address] [facility] Start: 11-17-2022 End: 11-17-2022 Patient encounter procedure 11/17/2022 4:15 PM EDT Office Visit [facility] [address] [place] [id number] Mona Humphries, MARY [address] [place] [address] [facility] Start: 11-10-2022 End: 11-10-2022 Follow-up encounter 11/10/2022 Follow-Up Podiatry Mona Humphries DPM [address] [place] [address] [facility] Start: 11-02-2022 End: 11-02-2022 Admission to same day surgery center 11/02/2022 Surgery Mona Humphries DPM [address] [place] [address] GANGLIONECTOMY left foot [facility] [place] [facility] Immunizations Immunization Date Immunization Notes Care Provider Fa cili 06-07-2017 influenza, seasonal, injectable Kate Kelly OD Work Phone: [facility] 08-07-2013 pneumococcal polysaccharide vaccine, 23 valent Kate Kelly OD Work Phone: [facility] Work Phone: Payers Date Payer Category Payer Unknown [id number] 2015 Unknown [id number] 2015 Unknown [employer] PPO [id number] 2015-Present [id number] 2015 Unknown 1953 Unknown [id number] 2.16.840.1.879922.3.579.2.651 1953 Unknown [id number] 2.16.840.1.475465.3.579.2.1068 1953 Unknown [id number] 2.16.840.1.554630.3.579.2.1068 1953 Unknown [id number] 2.16.840.1.979451.3.579.2.1068 1953 Unknown [id number] 2.16.840.1.299989.3.579.2.1068 1953 Unknown [id number] 2.16.840.1.276795.3.579.2.1068 1953 Unknown [id number] 2.16.840.1.556200.3.579.2.1068 1953 Unknown [id number] 2.16.840.1.333367.3.579.2.1068 1953 Unknown [id number] 2.16.840.1.539283.3.579.2.1068 1953 Unknown [id number] 2.16.840.1.810986.3.579.2.1068 1953 Unknown [id number] 2.16.840.1.934978.3.579.2. 1953 Unknown [id number] 2.16.840.1.839564.3.579.2. 1953 Unknown [id number] 2.16.840.1.899225.3.579.2.903 1953 Unknown [id number] 2.16.840.1.342005.3.579.2.903 1953 Unknown [id number] 2.16.840.1.905120.3.579.2.903 1953 Unknown [id number] 2.16.840.1.447459.3.579.2. 1953 Unknown [id number] 2.16.840.1.326771.3.579.2. 1953 Unknown [id number] 2.16.840.1.252194.3.579.2. 1953 Unknown [id number] 2.16.840.1.380006.3.579.2.3 1953 Unknown [id number] 2.16.840.1.036157.3.579.2. Social History Date Type Detail Facility Tobacco smoking status VTIS Unknown if ever smoked [facility] Start: 1955 Sex Assigned At Not on file [facility] Start: 03-22-2014 End: 02-18-2021 Tobacco smoking status VTIS Never smoker [facility] Start: 03-22-2014 End: 02-18-2021 Tobacco use and exposure Never used [facility] Start: 02-18-2021 End: 03-09-2023 Alcohol intake Current drinker of alcohol (finding) [facility] Start: 02-18-2021 Alcohol Comment Socially [facility] Start: 03-04-2022 End: 11-17-2022 Exposure to SARS-CoV-2 (event) Not sure [facility] Tobacco smoking consumption unknown [facility] Start: 03-14-2022 End: 03-09-2023 Alcohol intake [facility] Start: 03-22-2014 History SDOH Alcohol Comment weekly [facility] Start: 11-03-2022 End: 03-09-2023 Tobacco use panel [facility] National Score (1-100), lower number is lower risk 71 [facility] Clinical Notes 03-22-2014 to 03-09-2023 Patient InstructionsTe Kelly II, OD - 03/09/2023 10:34 AM EDForest Humphries, DPM - 11/17/2022 4:52 PM EDForest Humphries, MRAY - 11/10/2022 4:22 PM EDTPatient Instructions Note Date & Type Note Facility 03-09-2023 Note HNO ID: [id number] Author: Te Kelly II, OD Service: ? Author Type: FLATWORK FOLDER Type: Progress Notes Filed: 03/09/2023 10:37 AM [...] its relevant components. Te Kelly II, OD [facility] 03-09-2023 Instructions Te Kelly II, OD - [...] Kelly II, OD documented in this encounter [facility] 03-09-2023 History of Present illness Narrative Assessment [...] Kelly II, OD documented in this encounter [facility] 11-17-2022 History of Present illness Narrative Patient: [...] C) (Infrared) Laboratory and Additional Data Reviewed: Reviewed:[id number]} ECG 12 Lead Sinus bradycardia with sinus arrhythmia Rightward axis Low voltage QRS Borderline ECG Confirmed by Stef Muro MD ([id number]) on 10/30/2022 10:04:47 AM documented in this encounter [facility] 11-10-2022 History of Present illness Narrative Patient: [...] C) (Infrared) Laboratory and Additional Data Reviewed: Reviewed:[id number]} ECG 12 Lead Sinus bradycardia with sinus arrhythmia Rightward axis Low voltage QRS Borderline ECG Confirmed by Stef Muro MD ([id number]) on 10/30/2022 10:04:47 AM documented in this encounter [facility] 10-28-2022 History of Present illness Narrative Podiatry [...] 1:17 PM: Medications documented in this encounter [facility] 10-13-2022 History of Present illness Narrative Patient: [...] C) (Infrared) Laboratory and Additional Data Reviewed: Reviewed:[id number]} XR Foot Left 3+ Views (Standard) X-rays 3 views left foot: There is a screw in the first metatarsal of a well-healed osteotomy. Patient does have some joint space narrowing of the first metatarsal phalange joint and tarsometatarsal joints. documented in this encounter [facility] 08-18-2022 History of Present illness Narrative Patient: [...] C) (Infrared) Laboratory and Additional Data Reviewed: Reviewed:[id number]} XR Foot Left 3+ Views (Standard) X-rays 3 views left foot: There is a screw in the first metatarsal of a well-healed osteotomy. Patient does have some joint space narrowing of the first metatarsal phalange joint and tarsometatarsal joints. documented in this encounter [facility] 07-21-2022 History of Present illness Narrative Patient: [...] C) (Infrared) Laboratory and Additional Data Reviewed: Reviewed:[id number]} XR Foot Right 3+ Views (Standard) X-rays 3 views right foot: Patient has screw fixation from previous calcaneal osteotomy which is well-healed, pins in the first metatarsal and second toe from previous bunion and second hammertoe. Patient has no signs of inferior calcaneal heel spur and no signs of stress fracture of the first through 5 metatarsals documented in this encounter [facility] 03-14-2022 Note HNO ID: [id number] Author: Kate Kelly OD Service: ? Author Type: FLATWORK FOLDER Type: Progress Notes Filed: 03/14/2022 12:23 PM [...] prefers. Recommended yearly exams. Kate Kelly OD [facility] 03-14-2022 Instructions Kate Kelly OD - 03/14/2022 [...] Recommended yearly exams. documented in this encounter [facility] 03-14-2022 History of Present illness Narrative ASSESSMENT/PLAN: [...] Kate Kelly OD documented in this encounter [facility] 02-18-2021 History of Present illness Narrative Patient: [...] (Other (Comment)) Laboratory and Additional Data Reviewed: Reviewed:[id number]} XR Foot Right 3+ Views (Standard) Accession No: [id number] Performed: Jul 25 2018 8:32AM Examination: [...] Lower Extremity Right Without Contrast Accession No: [id number] Performed: Jun 14 2018 5:20PM Examination: [...] dw : cc: documented in this encounter [facility] documented as of this encounter (statuses as of 03/14/2022) [facility]08-16-2014 History of Past illness Narrative* Problem Noted Date Diagnosed Date Resolved Date Other chronic allergic conjunctivitis 03/22/2014 03/16/2017 documented as of this encounter (statuses as of 03/09/2023) [facility] note* Diagnosis Pain of right foot- Primary Plantar fasciitis of right foot [facility] Diagnosis Hypermetropia of both eyes- Primary Hypermetropia Presbyopia documented in this encounter [facility] note* Diagnosis Ganglion cyst of left foot- [facility], left- [facility] Ganglion of foot, left- Primary [facility] Diagnosis Pre-op testing Unspecified pre-operative examination Ganglion of foot, left Ganglion of foot, left- Primary Pre-op testing Unspecified pre-operative examination Ganglion of foot, left [facility]* Diagnosis No post-op complications- Primary [facility] Diagnosis Infection of superficial incisional surgical site after procedure, initial encounter- Primary [facility]* Diagnosis Hypermetropia of both eyes- Primary Hypermetropia Presbyopia Vitreous floaters of both eyes Combined form of senile cataract of both eyes [facility]* Ms. RODRIGUEZ presents [...] range of motion/joint mobility and strength. [facility] Work Phone: History of Present illness Narrative* Reviewed HEP this date at start of session. * Tightness on the L > R with addition of LTR. * Tightness along the Piriformis and QL with STW. * Re-educated in use of tennis ball for STW mobilization as part of HEP. * MET correction not needed d/t equal alignment. [facility] Work Phone: History of Present illness Narrative* Completed new DLS this date with patient liking the the hip ADD. * Tightness along B/L piriformis regions during STW. * Improved trunk flexibility with LTR. * Issued new HEP from [facility]. [facility] Work Phone: Hisyuxz of Present illness Narrative* Progress to standing PRE's this date. * Fatigues quickly with standing hip ext. * Improved transfers with decreased guarding. [facility] Work Phone: History of Present illness Narrative* Tenderness along the L piriformis and glute this date. * Improved flexibility this date with SKTC. * Mildly antalgic gait observed this date in the clinic. [facility] Work Phone: History of Present illness Narrative* Decreased overall guarding during gait and transfers this date. * Continues with tightness along the L glute/piriformis and ITB with STW. * Fatigues quickly with SLR. [facility] Work Phone: Hiscmas of Present illness Narrative* Pt reassessed this [...] Response to treatment: no change in pain. [facility] [employer] Work Phone: Reason for visit NarrativeInitial Evaluation [...] FoundDocuments on File Type Date Recorded Patient Machine Spring Former Expl anation Advance Directives and Living Will Latest Code Status on File Code Status Date Activated Date Inactivated Comments Full Code 11/02/2022 10:56 AM 11/02/2022 1:25 PM Procedure Findings Note [facility] [address], [place] [address]JVHI ALEJANDRO RODRIGUEZ [facility] [id number] 3DATE 07/25/2018OPERATIVE REPORT / PROCEDURE NOTESURGEON MONA [...] DATE CREATED AUTHOR AUTHOR'S ORGANIZ ATION 10/24/2018 [facility] DATE CREATED AUTHOR AUTHOR'S ORGANIZ ATION 08/21/2021 [facility] DATE CREATED AUTHOR AUTHOR'S ORGANIZ ATION 04/19/2022 [facility] DATE CREATED AUTHOR AUTHOR'S ORGANIZ ATION 04/20/2022 [facility] DATE CREATED AUTHOR AUTHOR'S ORGANIZ ATION 11/12/2022 [facility] DATE CREATED AUTHOR AUTHOR'S ORGANIZ ATION 11/30/2022 [facility] DATE CREATED AUTHOR AUTHOR'S ORGANIZ ATION 03/10/2023 [facility] Reason for Visit (unrecogniz ed section and [...] or prosecute any alcohol or drug abuse patient.[facility] the event this information is protected by the Federal Confidentiality of Alcohol and Drug Abuse Patient Records regulations: The Federal rules restrict any use of the information to criminally investigate or prosecute any alcohol or drug abuse patient.[facility] Care Teams (unrecognized sec tion and content) Principal Clerk Relationship Specialty Start Date End Date Rosio Gallardo Chi, MD [address] [address] PCP - General Geriatric Medicine 02/18/21 Principal Clerk Relationship Specialty Start Date End Date Rosio Gallardo Chi, MD [address] [facility] [address] [place] [address] PCP - General Geriatric Medicine 02/18/21 Principal Clerk Relationship Specialty Start Date End Date Rosio Gallardo Chi, MD [address] [facility] [address] [place] [address] PCP - General Geriatric Medicine 02/18/21 Principal Clerk Relationship Specialty Start Date End Date Rosio Gallardo Chi, MD [address] [facility] [address] [place] [address] PCP - General Geriatric Medicine 02/18/21 Principal Clerk Relationship Specialty Start Date End Date Rosio Gallardo Chi, MD [address] [facility] [address] [place] [address] PCP - General Geriatric Medicine 02/18/21 Principal Clerk Relationship Specialty Start Date End Date Rosio Gallardo Chi, MD [address] [facility] [address] [place] [address] PCP - General Geriatric Medicine 02/18/21 Principal Clerk Relationship Specialty Start Date End Date Rosio [...] BE BASED ON THE PRIMARY CLINICAL RECORDS. [employer] [facility]. provides no warranty or guarantee of the accuracy or completeness of information in this document.
== END | disposition home or self-care (01) ==
LOC: PSN 12:36
PROVIDERS: PCP Family Medicine; Referring Provider Internal Medicine Critical Care Medicine; Visit Provider Internal Medicine Critical Care Medicine
DX: R05.3 Chronic cough (principal)
CPT/HCPCS: 94070; 95070

== ENCOUNTER → 2023-10-28 | Outpatient (CLI) | payer MEDICARE, SELFPAY ==
--- NOTE | 2023-10-28 09:00 | MRI_ITS ---
STUDY: MRI LUMBAR SPINE WITHOUT CONTRAST REASON FOR EXAM: Female, 68 years old. pain TECHNIQUE: Standardized fat and water weighted pulse sequences were obtained in the sagittal and axial planes. COMPARISON: None FINDINGS: T12-L1: Normal endplates. Normal disc height, hydration and morphology. Normal bilateral facet joints. Normal central canal and bilateral lateral recesses. Normal bilateral intervertebral neural foramina. Normal lumbar lordosis. There is no substantial scoliosis. Normal conus medullaris that terminates at the L1. L1-2: Disc desiccation but no disc protrusion, spinal stenosis, or neural foraminal stenosis. L2-3: Mild bilateral facet hypertrophy with facet joints consistent with instability and moderate ligament flavum hypertrophy. Mild bilobed disc protrusion produces mild spinal stenosis and mild bilateral neural foraminal stenosis. L3-4: Mild bilateral facet hypertrophy and moderate ligament flavum hypertrophy. Moderate bilobed disc protrusion produces moderate spinal stenosis and the mild bilateral neural foraminal stenosis. L4-5: Severe bilateral facet hypertrophy and ligament flavum hypertrophy. Moderate broad disc protrusion produces severe spinal stenosis and moderate bilateral neural foraminal stenosis. L5-S1: Mild bilateral facet hypertrophy and ligament flavum hypertrophy. 2 mm retrolisthesis of L5 on S1 with a mild broad disc osteophyte complex produces moderate spinal stenosis and moderate bilateral neural foraminal stenosis. Normal visualized sacral ala. Mild friction related edema in the posterior subcutaneous fat. MRI/Spine Lumbar (Routine) IMPRESSION: Multilevel degenerative changes, as described above. Electronically Signed: Vince Sanders MD at 23:38 EDT ,
== END | disposition home or self-care (01) ==
LOC: MRI 08:50
PROVIDERS: PCP Family Medicine; Referring Provider Orthopaedic Surgery; Visit Provider Orthopaedic Surgery
DX: M43.10 Spondylolisthesis, site unspecified (principal)
CPT/HCPCS: 72148

== ENCOUNTER 2024-04-17 10:17 | Inpatient (IN) | payer MEDICARE, SELFPAY ==
--- NOTE | 2024-04-05 07:08 | EKG12_ITS ---
Test Reason : PRE OP Blood Pressure : / mmHG Vent. Rate : 065 BPM Atrial Rate : 065 BPM P-R Int : 000 ms QRS Dur : 086 ms QT Int : 416 ms P-R-T Axes : 000 -03 043 degrees QTc Int : 432 ms Undetermined rhythm Otherwise normal ECG Confirmed by TUSHAR PATTERSON ([id number]), rewrite editor CHAIM DOMÍNGUEZ ([id number]) on 04/06/2024 6:05:44 AM Referred By: RITU Confirmed By:TUSHAR PATTERSON
[2024-04-05 08:06] LABS: Absolute Lymphocyte Count 0.88 X10^3/uL (0.83-4.51); Absolute Neutrophil Count 1.8 X10^3/uL (2.0-7.7); Basophil# 0.03 X10^3/uL; Basophil% 0.9 % (0-1); Eosinophil# 0.18 X10^3/uL; Eosinophils% 5.2 % (0-5); Hematocrit 38.1 % (37-47); Hemoglobin 12.3 g/dL (12.0-15.0); Lymphocyte # 0.88 X10^3/ul (0.83-4.51); Lymphocyte % 25.5 % (19-41); Mean Corp Hgb Conc 32.3 g/dL (32-36); Mean Corpuscular Hgb 32.3 pg (27.0-32.0); Mean Platelet Vol. 10.8 fl (6.2-12.0); Monocyte# 0.55 X10^3/uL; Monocyte% 15.9 % (0-10); NRBC Flagged by Analyzer 0 % (0-5); Neutrophil % 52.2 % (47-70); Platelet Count 169 K/mm3 (150-450); RBC Distribution Width CV 13.9 % (11.6-14.6); RBC Distribution Width SD 51.4 fl (35.1-43.9); Red Blood Count 3.81 M/mm3 (4.2-5.4); White Blood Count 3.5 K/mm3 (4.4-11.0)
[2024-04-05 08:15] LABS: Anion Gap 7 (5-15); BUN 12 mg/dL (7-18); BUN/Creat Ratio 16.4 RATIO (10-20); Calcium,Total 9.5 mg/dL (8.5-10.1); Chloride 107 mmol/L (98-107); Creatinine, Serum 0.73 mg/dL (0.55-1.02); EST Glomerular Filtration Rate 83 mL/min (>60); Est Glom Filt Rate - Afr Amer 101 mL/min (>60); Glucose 104 mg/dL (74-106); Potassium 4.4 mmol/L (3.5-5.1); Sodium Level 139 mmol/L (136-145)
[2024-04-05 08:29] LABS: Magnesium 1.7 mg/dL (1.6-2.6)
[2024-04-05 10:47] LABS: HIV - WCH Non-Reactive (Nonreactive); Hepatitis B Surface Antibody Non-Reactive; Hepatitis C Antibody Non-Reactive (Nonreactive)
[2024-04-06 07:09] LABS: Hepatitis A AB, Total Negative (Negative)
[2024-04-17] VITALS (17 sets, daily range): BP systolic 126–200; BP diastolic 64–111; PULSE 69–105; RESP 16–20; TEMP 36.1–36.6; O2SAT 4–98; BMI 42.3; BMI 42.4
--- NOTE | 2024-04-17 10:43 | PCM.PRE.AN2 ---
ASA Classification* ASA Classification ASA Classification: 2 Assessment & Plan Anesthesia* Anesthesia Assessment Anesthesia Assessment: Discussed sedation and/or anesthesia options, risks, benefits, and alternatives with patient/parents/legal guardian/POA. Questions invited. The patient/parents/legal guardian/POA seems to understand and agrees to proceed with anesthesia plan. Reviewed the physical assessment, medical history, allergy history and patient home medications list prior to surgery/procedure/anesthetic and documented any changes. Performed airway and anesthesia risk assessments. Anesthesia Type Anesthesia Type: General Anesthesia Focused Assessment* Airway Assessment Mouth opens: >3 cm Mallampati Score: II Focused Labs Anesthesia Preop lab: CBC WBC 3.5 K/mm3 (4.4-11.0) L 04/05/24 07:31 RBC 3.81 M/mm3 (4.2-5.4) L 04/05/24 07:31 Hgb 12.3 g/dL (12.0-15.0) 04/05/24 07:31 Hct 38.1 % (37-47) 04/05/24 07:31 Plt Count 169 K/mm3 (150-450) 04/05/24 07:31 CHEMISTRY Potassium 4.4 mmol/L (3.5-5.1) 04/05/24 07:31 Sodium 139 mmol/L (136-145) 04/05/24 07:31 Magnesium 1.7 mg/dL (1.6-2.6) 04/05/24 07:31 BUN 12 mg/dL (7-18) 04/05/24 07:31 Creatinine 0.73 mg/dL (0.55-1.02) 04/05/24 07:31 Glucose 104 mg/dL (74-106) 04/05/24 07:31 TSH 3.520 uIU/mL (0.358-3.740) 04/05/24 07:31 COAG Pre-Assessment Diagnosis/Proposed Procedure Planned Operative Procedure(s): ERAS 360 LUMBAR FUSION L4-5 Anesthesia History 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 When Was Last Pacemaker Check QUESTION #4 FULL TEXT: You/Your Family Experience fever (hyperthermia) with Anesthesia Last Oral Intake Last Oral intake: Last Oral Intake NPO since Meds taken in AM with sips of water? Meds patient instructed to take am of surgery PONV PONV - planer off bearer: PONV - planer off bearer Female Yes 04/02/24 11:10 HX of Motion Sickness Yes 04/02/24 11:10 HX of N/V After Surgery No 04/02/24 11:10 Non-Smoker Yes 04/02/24 11:10 Duration of Surgery greater Yes 04/02/24 11:10 than 60 minutes Number of Risk Factors 4 04/02/24 11:10 PONV Score Severe Risk 04/02/24 11:10 Height & Weight Height & Weight: Anesthesia: Height & Weight Height 5 ft 9.5 in 03/21/24 10:55 Respiratory Assessment Respiratory Assessment - planer off bearer: Respiratory Tract Infection Hx - planer off bearer Hx Respiratory Tract Infection No 04/02/24 11:10 STOP Sleep Apnea STOP Sleep Apnea - planer off bearer: STOP Sleep Apnea - planer off bearer Hx Hypertension Yes: CONTROLLED WITH MED 04/02/24 11:10 Hx Sleep Apnea No 04/02/24 11:10 CPAP BIPAP Do you snore loudly (louder No 04/02/24 11:10 than talking or can be heard Do you often feel tired/ No 04/02/24 11:10 fatigued/ sleepy during daytime? Has anyone observed you stop No 04/02/24 11:10 breathing during sleep? STOP Results Negative 04/02/24 11:10 QUESTION #5 FULL TEXT : Do you snore loudly (louder than talking or can be heard through closed doors)? 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 Specify any problems Hx of Preganancy in last 3 No 04/02/24 11:10 Months Nurse Filling Out Transfusion DSCHRIBER 04/02/24 11:10 & Questions: Date: 04/02/24 04/02/24 11:10 Time: 11:11 04/02/24 11:10 Patient unable to answer at this time (ie. confused, unrespo /Reproduction History /Reproductive History - planer off bearer: /Reproductive Hx- planer off bearer Hx Now No 04/02/24 11:10 Gestational Age (in weeks): EDC: Hx Hx Para Hx Section SAB No 04/02/24 11:10 Active Medications Active Medications: Current Medications Generic Name Dose Route Start Last Admin Trade Name Freq PRN Reason Stop Dose Admin Acetaminophen 1,000 mg 04/17/24 12:30 Acetaminophen 500 Mg Tablet PO 04/17/24 12:31 X1 ONE Cefazolin Sodium 3 gm/ Sodium 115 mls @ 150 mls/hr 04/17/24 12:30 Chloride IV 04/17/24 13:15 PREOP ONE Magnesium Sulfate 2 gm/ 104 mls @ 208 mls/hr 04/17/24 12:30 Dextrose IV 04/17/24 12:59 X1 ONE Lactated Ringer's 1,000 mls @ 15 mls/hr 04/17/24 10:30 IV .Q48H SYMONE Insulin Human Lispro 1 - 6 unit 04/17/24 12:30 Insulin Lispro 100 Unit/Ml Insuln.Pen SC Q4H PRN PRN BG>/= 180, SEE PROTOCOL Protocol PFSH Medical History Wears contact lenses Post-menopausal Anxiety Alcohol use Arthritis Back pain Gastric reflux Non-smoker Asthma Shortness of breath on exertion History of pain when walking History of edema Hypertension Hypothyroid Home Medications ?Medication ?Instructions ?Recorded ?Last Taken ?Type cholecalciferol (vitamin D3) 50 50 mcg PO DAILY SUPPLEMENT 07/18/22 Unknown History mcg (2,000 unit) capsule citalopram 20 mg tablet 20 mg PO DAILY DEPRESSION 02/21/22 Unknown History hydrochlorothiazide 12.5 mg tablet 12.5 mg PO DAILY BP 02/21/22 Unknown History levothyroxine 25 mcg tablet 25 mcg PO DAILY THYROID 02/21/22 Unknown History losartan 50 mg tablet 50 mg PO DAILY BP 02/21/22 Unknown History albuterol sulfate 90 mcg/actuation 2 puff inhalation Q4H PRN 09/04/23 Unknown Rx aerosol inhaler (Ventolin HFA) shortness of breath or wheezing #8.5 grams spacer #1 ea 09/28/23 Unknown Rx fluticasone 500 mcg-salmeterol 50 1 inh inhalation BID ASTHMA #60 ea 10/17/23 Unknown Rx mcg/dose blistr powdr for inhalation (Wixela Inhub) omeprazole 20 mg capsule,delayed 20 mg PO DAILY GERD 04/02/24 Unknown History release Allergy/AdvReac Type Severity Reaction Status Date / Time acetaminophen (From Vicodin) Allergy Other Verified 04/11/24 08:01 hydrocodone (From Vicodin) Allergy Other Verified 04/11/24 08:01 nickel Allergy Rash Verified 04/11/24 08:01 Surgical History Hx of colonoscopy History of carpal tunnel surgery of right wrist History of bunionectomy of right great toe History of bunionectomy of left great toe Hx of total knee arthroplasty Hx of total knee arthroplasty Hx of hysterectomy Social History Smoking Status: Never smoker Electronic Cigarette Use: not used second hand exposure: No alcohol intake: current alcohol intake frequency: holidays/special occasions only substance use type: does not use Review of Systems (Anesthesia) ROS Narrative System reviewed and no additional complaints, except as documented.
[2024-04-17 11:10] LABS: INR Fingerstick 1.3; Prothrombin Time Fingerstick 14.6 SEC (11.7-14.9)
[2024-04-17] MEDS: Ipratropium/Albuterol Sulfate 3 ML AMPUL.NEB INHALATION (11:14)
[2024-04-17] MEDS: Lactated Ringers 1,000 ML 15 ML IV (11:25)
[2024-04-17] MEDS: Magnesium 2 GM for ERAS IV (11:25)
[2024-04-17] MEDS: Acetaminophen 500 MG Tablet 1000 MG PO ×2 (11:26→20:40)
--- NOTE | 2024-04-17 11:34 | PCM.HP.BLA ---
History and Physical Date of Admission: 04/17/24 MR#: [id number] Acct: [id number] Name: ALEJANDRO RODRIGUEZ Rep #: [id number] : 1955 Provider: Dr. Rusty Castro MD Age/Sex: 69/F Location: [facility] [place] Status: Signed Intake Vital Signs 10/17/2409:22 03/21/2410:55 Height 5 ft 9.5 in 5 ft 9.5 in Weight: 291 lb BMI 42.3 BP 128/84 H Blood Pressure Location Rt brachial Position Sitting Respiration 18 Pulse 73 Pulse Source Monitor Temp 97.4 F L Pulse Oximetry (%) 95 Oxygen Delivery Method room air Intake Visit Reasons: lumbar spine Accompanied by: Is patient in pain?: No Allergies acetaminophen (From Vicodin) Allergy (Verified 04/11/24 08:01) Otherhydrocodone (From Vicodin) Allergy (Verified 04/11/24 08:01) Othernickel Allergy (Verified 04/11/24 08:01) Rash Medications ?Medication ?Instructions ?Recorded ?Confirmed ?Type cholecalciferol (vitamin D3) 50 50 mcg PO DAILY SUPPLEMENT 02/21/22 04/11/24 History mcg (2,000 unit) capsule citalopram 20 mg tablet 20 mg PO DAILY DEPRESSION 02/21/22 04/11/24 History hydrochlorothiazide 12.5 mg tablet 12.5 mg PO DAILY BP 02/21/22 04/11/24 History levothyroxine 25 mcg tablet 25 mcg PO DAILY THYROID 02/21/22 04/11/24 History losartan 50 mg tablet 50 mg PO DAILY BP 02/21/22 04/11/24 History albuterol sulfate 90 mcg/actuation 2 puff inhalation Q4H PRN 09/04/23 04/11/24 Rx aerosol inhaler (Ventolin HFA) shortness of breath or wheezing #8.5 grams spacer #1 ea 09/28/23 04/02/24 Rx fluticasone 500 mcg-salmeterol 50 1 inh inhalation BID ASTHMA #60 ea 10/17/23 04/11/24 Rx mcg/dose blistr powdr for inhalation (Wixela Inhub) omeprazole 20 mg capsule,delayed 20 mg PO DAILY GERD 04/02/24 04/11/24 History release Have you fallen in the past year?: No PFSH Medical History Wears contact lenses Post-menopausal Anxiety Alcohol use Arthritis Back pain Gastric reflux Non-smoker Asthma Shortness of breath on exertion History of pain when walking History of edema Hypertension Hypothyroid Surgical History Hx of colonoscopy History of carpal tunnel surgery of right wrist History of bunionectomy of right great toe History of bunionectomy of left great toe Hx of total knee arthroplasty Hx of total knee arthroplasty Hx of hysterectomy Social History Smoking Status: Never smoker Electronic Cigarette Use: not used second hand exposure: No alcohol intake: current alcohol intake frequency: holidays/special occasions only substance use type: does not use HPI lumbar spine Details: This documentation accurately reflects the service provided and the decisions made by me, Dr. Rusty Castro MD 04/11/24 0800. Part of today?s visit was documented by Lilliana STERLING , acting as scribe. ALEJANDRO RODRIGUEZ is a 69 year old F here today for a pre-op. D.O.S 04/17/2024 Patient is having a 360 Lumbar Fusion L4-5. With continues to be in pain in the lower back as well as difficulty walking distances. She has bilateral lower extremity radiation. 02/22/24: ALEJANDRO RODRIGUEZ is a 69 year old F here today for low back pain. Patient previously saw Dr. Ornelas and would like to discuss surgery today. Patient states that her low back pain has gotten worse since she was last seen. Alejandro has seen Dr. Ornelas multiple times and was anticipating surgery. She has had low back pain for many years this is worsened over the last year. She has been trying chiropractic treatment without significant help. She is also tried physical therapy on couple of occasions which only made symptoms worse. She maintains that she has low back pain as well as fatigue and tiredness after walking certain distance along with numbness in both lower extremities which requires her to lean onto a shopping cart or sit down after a while. She mentioned that she is not able to walk certain distances and this affects her quality of life. She is nondiabetic. She has asthma and is under treatment with Dr. Farris. Ortho Exam General General: Yes no acute distress Neurologic: Yes alert and Yes oriented x3 Spine SPINE TESTING CERVICAL THORACIC LUMBAR Musculoskeletal Strength 0=absent - 5=normal Details: Examination the back shows midline and paraspinal tenderness. Neurologic evaluation of lower extremity shows 5 out of 5 power normal shows normal sensations in all dermatomes. Coding Level of Care Code Off vis,est,level 4 Diagnoses Spondylolisthesis, lumbar region M43.16 Spinal stenosis of lumbar region with neurogenic claudication M48.062 Time Spent (min) 35 Assessment and Plan Assessment and Plan (1) Spondylolisthesis, lumbar region: Status: Acute (2) Spinal stenosis of lumbar region with neurogenic claudication: Status: Acute Plan I again reviewed her x-rays and MRI of the lumbar spine. I obtain bending x-rays today. These show L4-5 grade 2 spondylolisthesis with dynamic instability on flexion-extension views. On supine MRI from October there is good alignment and reduction of the spondylolisthesis. There is severe stenosis L4-5 with mild stenosis L3-4 and L5-S1. L5-S1 show disc height loss with Modic changes and disc degeneration. L3-4 shows left foraminal stenosis, but patient does not have any asymmetry in anterior thigh pain or numbness. I again explained to her the imaging findings in detail. She has significant neurogenic claudication and reduced walking distance likely arising from the unstable L4-5 spondylolisthesis stenosis. But she does have mild degeneration and stenosis L3-4 L5-S1, I believe L4-5 is the majority of her symptoms. I explained her options of treatment which include continued nonoperative treat measures versus surgery. Possibly epidural injections were discussed with the patient declined. Patient like to pursue surgical intervention. Surgical options were discussed. L4-5 anterior posterior fusion was discussed in detail. Risk benefits and alternatives were discussed. The risks include but are not limited to infection, bleeding, injury to nerves and vessels, vascular injury, visceral injury, ileus, DVT, pulm embolism, pneumonia, atelectasis, pseudoarthrosis, adjacent segment degeneration, hardware failure, need for further surgery, persistent pain, nerve root injury, foot drop. Patient understands and agrees to proceed with surgery. Consent was signed.
--- NOTE | 2024-04-17 11:43 | PCM.POST.ANE ---
Anesthesia: Postop Eval I Current Vital Signs Temperature: 96.9 F Pulse Rate: 69 Blood Pressure: 141/96 Respiratory Rate: 16 Pulse Ox: 94 Oxygen Delivery Method: Nasal Cannula Oxygen Flow Rate (L/min): 4 Fraction of Inspired Oxygen (FIO2): 34 EtCo2 (Normal 35-45 , high quality CPR 10-20 & ROSC>/=40mmHg): 41 Assessment Airway patent: Yes Spontaneous unlabored respirations: Yes Mental status: Awake and Calm nausea: No Vomiting: No Anesthesia Complication: No Fluid Hydration Crystalloid volume administer (ml): 1,300 Total IV fluid infused: 1,300 Progress Note Anesthesia document: Postop Eval 1 completed: Yes
[2024-04-17] MEDS: Cefazolin 3 GM in 0.9% Normal Saline (100mL Bag) 100 ML IV (12:30)
--- NOTE | 2024-04-17 12:58 | RAD_ITS ---
STUDY: X-RAY - LUMBAR SPINE REASON FOR EXAM: Female, 69 years old. 360 FUSION L4-5 TECHNIQUE: 15 fluoroscopic guided view(s) of the lumbar spine were obtained. COMPARISON: None FINDINGS: Fluoroscopic guided fusion of L4-5 was performed utilizing 73.6 seconds of fluoroscopic time. . 15 images were obtained to document findings during the study. For more complete information recommend correlation with surgical notes RAD/Spine 1 View Any Level IMPRESSION: Fluoroscopic guided fusion of L4-5 Electronically Signed: Rico Gardiner MD at 16:52 EDT ,
[2024-04-17 13:39] LABS: Bedside Glucose 108 mg/dL (74-106)
[2024-04-17] MEDS: Ropivacaine 0.5% 30 ML Vial (16:19)
--- NOTE | 2024-04-17 16:22 | PCM.OPRPT ---
Report of Operation Date of Procedure: 04/17/24 Description of Surgical Findings:: Preoperative diagnosis: L4-5 grade 2 degenerative spondylolisthesis, stenosis with neurogenic claudication Postoperative diagnosis: Same Name of procedures L4-5 oblique lumbar interbody fusion (OLIF), minimally invasive left sided approach, lateral decubitus: ? L4-5 anterolateral spinal fusion 64927 ? L4-5 insertion of cage [id number] ? Bone graft aspirate left iliac crest separate incision ? Allograft cancellous chips Attending Surgeon: Dr. Rusty Castro Estimated blood loss: 100 mL Anesthesia: General Complications: None Indications: Patient is a 69-year-old pleasant lady who has had a long history of low back pain and difficulty walking distances. Xrays & MRI revealed L4-5 grade 2 spondylolisthesis which reduced on supine MRI. L4-5 severe stenosis noticed. After undergoing a prolonged period of nonoperative treatment, the patient elected to undergo surgical decompression & fusion. All surgical options were discussed with the patient including anterior and posterior approaches. All risks and benefits associated with the procedure were explained to the patient. The risks include but are not limited to infection, bleeding, injury to nerves and vessels including major vessels like IVC and aorta, persistent paresthesia, persistent pain, dural tear, need for further procedures, adjacent segment degeneration, pseudoarthrosis, hardware failure, retrograde ejaculation, paralytic ileus, etc. Procedure: The patient was identified in the preoperative holding suite using Unique patient identifiers. Skin was marked, consent was reviewed, and all questions were answered. The patient was then brought back to the operative room. A surgical timeout was performed to make sure correct procedure was being done on the correct patient and all operative room staff were on the same page. General endotracheal anesthesia was then given to the patient. Coburn catheter was inserted. The patient was then carefully positioned in right lateral decubitus position with the left side up on a regular OR table. Axillary roll was placed and all bony prominences were well- padded. Hip positioners were placed in the posterior buttocks and anterior sternal area. The surgical area was prepped and draped in usual fashion. Preoperative antibiotic was injected IV as preoperative antibiotic. A final timeout was then again done just before starting the procedure. A 2 inch incision oblique was taken in the left lower quadrant of the abdomen 2 fingerbreadths away from the iliac crest and the lower ribs. Sharp dissection with Bovie was carried out up to the fascia covering the external oblique. The external oblique, internal oblique and transversus abdominis muscles were split along the muscle fibers and retroperitoneal space was entered. Sponge sticks were utilized to move the bowel and peritoneum [id number]-way and psoas muscle was exposed staying within the retroperitoneal plane. Stock[employer] retractor system was positioned and the retractor blade was applied onto the psoas. The interval between psoas and midline structures was developed and appropriate retractors were placed. Once adequate interval was cleared, a disc space was identified and a marker x-ray was taken. This identified the L4-5 disc level. Annulotomy was done with a long handled knife. Pituitary was used to remove disc material. Curettes were used to prepare the endplates. Disc space spreaders were utilized to distract and increase the disc height. Near complete discectomy was performed. Smaller disc distractors were also used to bluntly perform a contralateral annulotomy. Trials of serially increasing sizes were used. A Jamshidi needle was used to aspirate bone marrow from the left anterior iliac crest through a separate incision and this aspirate was mixed with the allograft bone chips. A Depuy [place] cage of size of the 18 x 15 x 14 mm with 15 degrees lordosis was packed with corticocancellous allograft bone chips mixed with bone marrow aspirate wrapped in [employer] infuse BMP sponge. This was inserted into the L4-5 disc space. AP and lateral C-arm pictures were taken to confirm good position of the cage. Some bone chips were also packed around the cages. Screw with washer was placed into the lower L4 body with a washer partially covering the cage at L4-5. Hemostasis was confirmed. The retractor blades were removed. Closure was done in layers with a continuous strand of # 1 Vicryl in all muscle layers. 2-0 Vicryl was used for subcutaneous tissue and 4-0 for Monocryl for the skin. Steri-Strips were applied and 4 x 4 gauze and Tegaderm were applied. Surgeon: Rusty Castro energy specialist: Nan Hunter Admit VTE Documentation VTE Mechan Device Prophylaxis: SCD's Procedures Musculoskeletal [id number]: Other Procedure See Report
--- NOTE | 2024-04-17 16:26 | OP.PCM_ITS ---
Report of Operation Date of Procedure: 04/17/24 Description of Surgical Findings:: Preoperative diagnosis: L4-5 grade 2 degenerative spondylolisthesis, stenosis with neurogenic claudication Postoperative diagnosis: Same Name of procedures: L4-5 posterior percutaneous pedicle screw instrumented fusion, prone: ? L4-5 posterior spinal fusion ? L4-5 posterior pedicle screw instrumentation [id number] ? Allograft cancellous chips [id number] Attending Surgeon: Dr. Rusty Castro Estimated blood loss: 100 mL (total for entire case) Anesthesia: General Complications: None Description of procedure: After the anterior procedure was complete, the patient was then turned supine. The patient was then transferred to Armando table in prone position. Back was prepped and draped in usual fashion. C-arm AP view was then taken. C-arm was positioned in a way that L4 was centralized and superior endplate of was parallel to the beam. Spinous process was centered between the pedicles. Midline was marked with skin marker and lateral borders of the pedicles were also marked. Skin marker was also utilized to diogenes transversely across the middle of the pedicles at L4. 2 longitudinal paramedian incisions of 1 inch were placed. The fascia was incised vertically. Finger dissection was utilized to palpate the transverse process and facet joint. Viper Prime screws with towers were inserted and docked onto the transverse processes. This was then slowly moved medially to reach the superior articular process of L4. This was then confirmed on C-arm and then a mallet was utilized to drive the trocar into the pedicle going up to the medial wall of the pedicle on AP view. This was performed both sides. C-arm lateral view confirmed that the tip of the trocar was in the vertebral body, and the screw was advanced into the pedicle and vertebral body. This was repeated similarly at L5 bilaterally. Screw sizes were 7 x 50 mm at L4 and L5 on both sides. 55 mm precontoured titanium 5.5 mm lordotic thad on the right and 50 mm on the left were then passed through the screw extensions and reduced down to the screws with the help of [employer] instrumentation system on both sides. AP and lateral view of the C-arm showed good positioning of the screws and cages. Final tightening with the torque screwdriver was then completed. Riva was utilized to roughen the facet joint at L4-5 on the right side. Cancellous allograft bone chips mixed with bone marrow aspirate were then placed over this decorticated area. Hemostasis was achieved. Closure was done in layers with 0 Vicryls for the fascia, 2-0 Vicryls for the subcutaneous tissue, and Monocryl for the skin. Dermabond was applied. Dressings were applied covered with Tegaderm. The patient was then turned supine onto a hospital bed. The patient was extubated and taken to PACU in stable condition. The patient tolerated the procedure well and no complications occurred. Depuy [place] cage & Viper Prime minimally invasive pedicle screw instrumentation system was utilized in this case. No dural tear was identified intraoperatively. I was present for the entirety of the case and performed the surgery. Surgeon: Rusty Castro glass ribbon machine operator assistant: Nan Hunter Admit VTE Documentation VTE Mechan Device Prophylaxis: SCD's Procedures Musculoskeletal [id number]: Other Procedure See Report
--- NOTE | 2024-04-17 16:45 | PCM.POST.ANE ---
Anesthesia: Postop Eval I Current Vital Signs Temperature: 97.3 F Pulse Rate: 105 Blood Pressure: 163/97 Respiratory Rate: 16 Pulse Ox: 95 Oxygen Delivery Method: Room Air Assessment Airway patent: Yes Spontaneous unlabored respirations: Yes Mental status: Awake and Calm nausea: No Vomiting: No Anesthesia Complication: No Fluid Hydration Crystalloid volume administer (ml): 1,800 Total IV fluid infused: 1,800 Progress Note Anesthesia document: Postop Eval 1 completed: Yes
--- NOTE | 2024-04-17 17:46 | POSTOPAN2_ITS ---
Anesthesia Postop Eval I Sum Postop Eval Completion status Anesthesia document: Postop Eval 1 completed: Yes Anesthesia Postop Eval I Summary Anesthesia Postop Eval I Summary: Anesthesia Postop Eval I: Assessment Summary Airway patent Yes 04/17/24 16:46 [email or web address] Spontaneous unlabored Yes 04/17/24 16:46 [email or web address] respirations Mental status Awake,Calm 04/17/24 16:46 [email or web address] nausea No 04/17/24 16:46 GUEST [email or web address] Vomiting No 04/17/24 16:46 [email or web address] Anesthesia Postop Eval I: Fluid Summary Crystalloid volume administer 1,800 04/17/24 16:46 [email or web address].MDOT (ml) Colloids volume administered ( ml) Blood Product volume administered (ml) Total IV fluid infused 1,800 04/17/24 16:46 GUEST [email or web address] Anesthesia Postop Eval I: Summary Notes Anesthesia Complication No 04/17/24 16:46 [email or web address] Anesthesia Complication Comment: Post-operative progress note Anesthesia: Postop Eval II Evaluation Mental status: Awake Pain Level: 0 nausea: No Vomiting: No
--- NOTE | 2024-04-17 17:46 | PCM.POSTANE2 ---
Anesthesia Postop Eval I Sum Postop Eval Completion status Anesthesia document: Postop Eval 1 completed: Yes Anesthesia Postop Eval I Summary Anesthesia Postop Eval I Summary: Anesthesia Postop Eval I: Assessment Summary Airway patent Yes 04/17/24 16:46 [email or web address] CONTROL SPECIALIST.[email or web address] Spontaneous unlabored Yes 04/17/24 16:46 TRAFFIC CONTROL SPECIALIST.MDOT respirations Mental status Awake,Calm 04/17/24 16:46 TRAFFIC CONTROL SPECIALIST.MDOT nausea No 04/17/24 16:46 TRAFFIC CONTROL SPECIALIST.MDOT Vomiting No 04/17/24 16:46 TRAFFIC CONTROL SPECIALIST.MDOT Anesthesia Postop Eval I: Fluid Summary Crystalloid volume administer 1,800 04/17/24 16:46 TRAFFIC CONTROL SPECIALIST.MDOT (ml) Colloids volume administered ( ml) Blood Product volume administered (ml) Total IV fluid infused 1,800 04/17/24 16:46 TRAFFIC CONTROL SPECIALIST.MDOT Anesthesia Postop Eval I: Summary Notes Anesthesia Complication No 04/17/24 16:46 TRAFFIC CONTROL SPECIALIST.MDOT Anesthesia Complication Comment: Post-operative progress note Anesthesia: Postop Eval II Evaluation Mental status: Awake Pain Level: 0 nausea: No Vomiting: No
[2024-04-17] MEDS: oxyCODONE 5 MG Tablet PO (18:52)
[2024-04-17] MEDS: Ketorolac 15 MG/ML Vial IV ×2 (18:52→22:59)
[2024-04-17] MEDS: Methocarbamol 500 MG Tablet 1000 MG PO ×2 (18:53→20:40)
[2024-04-17] MEDS: Albuterol 2.5 MG/3 ML VIAL.NEB. INHALATION (19:35)
[2024-04-17] MEDS: Budesonide Respules 0.5 MG/2 ML AMPUL.NEB. INHALATION (19:35)
[2024-04-17] MEDS: Cefazolin 2 GM in 0.9% Normal Saline (100mL Bag) 100 ML IV (20:34)
[2024-04-17] MEDS: Senna/Docusate Sodium 1 Tablet 2 TABLET PO (20:40)
--- NOTE | 2024-04-17 23:51 | PN.HOSP_ITS ---
Reason for Visit Reason for Visit: Diagnoses Encounter for other preprocedural examination (04/17/24) Subjective Subjective I was called by 3rd floor RN and informed this patient had a consult for medical management that has been pending since this afternoon. Patient has no acute issues at this time for me to address and her vital signs are stable. Objective Data Objective Data Vital Signs: Vital Signs Temp Pulse Resp BP Pulse Ox O2 Del Method O2 Flow Rate 97.9 F 90 18 140/74 H 95 Nasal Cannula 2 04/17/24 22:57 04/17/24 22:57 04/17/24 22:57 04/17/24 22:57 04/17/24 22:57 04/17/24 22:57 04/17/24 22:57 FiO2 41 04/17/24 17:15 Oxygen Flow Rate (L/min) 2 Oxygen Delivery Method Nasal Cannula Weight: 291 lb Body Mass Index (BMI) 42.3 Intake & Output: Intake and Output for Last 24 Hours 04/15/24 04/16/24 04/17/24 23:59 23:59 23:59 Intake Total 329 / 329 Balance 329 / 329 Lab / Micro Data 04/05/24 07:31 04/05/24 07:31 Labs: Laboratory Results - last 24 hr 04/17/24 10:58: POC Glucose 108 H 04/17/24 11:08: POC PT 14.6, INR 1.3 Micro: Microbiology 04/05/24 07:31 Swab (Method) Nasal Screen MRSA/MSSA - Final Physical Exam Const alert, oriented x3, no apparent distress, average body habitus, no limitations and healthy appearing General Appearance: cooperative, comfortable, well kempt and well developed Orientation / Consciousness: awake, oriented to person, oriented to place and oriented to time Exam Limitations: no limitations Nutritional Appearance: morbidly obese HEENT normocephalic, head/scalp atraumatic and hearing grossly normal bilaterally Eyes PERRL and EOMs intact bilaterally Neck full ROM Lymph Lymphatic: no lymphadenopathy noted Chest inspection of chest normal Resp normal respiratory effort, normal air movement, no retractions and no use of accessory muscles Cardio regular rate and regular rhythm GI normal to inspection, nondistended, normoactive bowel sounds, soft to palpation, non-tender and non-distended GI Narrative: Morbidly obese. Extremity normal to inspection and full ROM Skin no rashes or lesions noted Assessment & Plan Assessment/Plan (1) Spinal stenosis of lumbar region with neurogenic claudication: (2) Spondylolisthesis, lumbar region: (3) Degenerative spondylolisthesis: (4) Allergic asthma: QUALIFIERS: Asthma severity: mild Asthma persistence: i ntermittent Asthma complication type: uncomplicated Qualified Code(s): J45.20 - Mild intermittent asthma, uncomplicated (5) Obesity: QUALIFIERS: Obesity type: due to excess calories Obesity classification: adult class 3 (BMI >= 40) Serious obesity comorbidity presence: with serious comorbidity Body mass index: BMI 40.0-44.9 Qualified Code(s): E66.01 - Morbid (severe) obesity due to excess calories; Z68.41 - Body mass index [BMI] 40.0-44.9, adult (6) Chronic cough: PLAN: Plan This patient is doing very well postoperatively with no new complaints. Orthopedic care plan is excellent with no medical needs unaddressed at this time. Thank you for allowing us to participate in the care of your patient. Charges/Coding Visit Charges Inpatient E&M: 05126 Subs Hosp L1
[2024-04-18] VITALS (9 sets, daily range): BP systolic 110–153; BP diastolic 56–90; PULSE 66–95; RESP 16–18; TEMP 36.5–37.1; O2SAT 94–98; BMI 42.4
[2024-04-18] MEDS: oxyCODONE 5 MG Tablet PO (02:41)
[2024-04-18] MEDS: Cefazolin 2 GM in 0.9% Normal Saline (100mL Bag) 100 ML IV (05:13)
[2024-04-18] MEDS: Levothyroxine 25 MCG TABLET PO (05:13)
[2024-04-18] MEDS: Ketorolac 15 MG/ML Vial IV (05:13)
[2024-04-18] MEDS: Acetaminophen 500 MG Tablet 1000 MG PO ×3 (05:14→21:18)
[2024-04-18] MEDS: Albuterol 2.5 MG/3 ML VIAL.NEB. INHALATION ×3 (06:57→19:39)
[2024-04-18] MEDS: Budesonide Respules 0.5 MG/2 ML AMPUL.NEB. INHALATION ×2 (06:57→19:39)
--- NOTE | 2024-04-18 07:00 | RAD_ITS ---
STUDY: X-RAY - LUMBAR SPINE REASON FOR EXAM: Female, 69 years old. S/p lumbar fusion TECHNIQUE: 3 view(s) of the lumbar spine were obtained. COMPARISON: Comparison is made with prior study February 22, 2024. FINDINGS: Normal lumbar lordosis. There is no substantial scoliosis. There is a normal alignment of the vertebrae. The patient is status post intraventricular screw and thad fixation at the L4-L5 level with prosthetic disc placement. Disc space narrowing and spondylosis at the L5-S1 level. The soft tissue structures are unremarkable. RAD/Lumbar Spine 2 or 3 Views IMPRESSION: Status post fusion at the L4-L5 level with prosthetic disc placement. Disc space narrowing and spondylosis at the L5-S1 level. Electronically Signed: Nicanor Escalera MD at 11:57 EDT ,
[2024-04-18 07:21] LABS: Mean Corp Hgb Conc 32.4 g/dL (32-36); Mean Corpuscular Hgb 33.4 pg (27.0-32.0); Mean Corpuscular Volume 103.3 fL (81-99); Mean Platelet Vol. 10.7 fl (6.2-12.0); Platelet Count 181 K/mm3 (150-450); RBC Distribution Width CV 14.7 % (11.6-14.6); RBC Distribution Width SD 55.8 fl (35.1-43.9); Red Blood Count 3.29 M/mm3 (4.2-5.4); White Blood Count 9.5 K/mm3 (4.4-11.0)
[2024-04-18 07:44] LABS: Anion Gap 9 (5-15); BUN 14 mg/dL (7-18); BUN/Creat Ratio 13.2 RATIO (10-20); Calcium,Total 9.2 mg/dL (8.5-10.1); Chloride 103 mmol/L (98-107); Creatinine, Serum 1.06 mg/dL (0.55-1.02); EST Glomerular Filtration Rate 54 mL/min (>60); Est Glom Filt Rate - Afr Amer 66 mL/min (>60); Glucose 116 mg/dL (74-106); Potassium 4.4 mmol/L (3.5-5.1); Sodium Level 134 mmol/L (136-145)
[2024-04-18] MEDS: Senna/Docusate Sodium 1 Tablet 2 TABLET PO ×2 (08:52→21:18)
[2024-04-18] MEDS: Pantoprazole Sodium 20 MG Tablet PO (08:52)
[2024-04-18] MEDS: Cholecalciferol (VIT D3) 25 MCG TABLET (1,000 UNITS) 50 MCG PO (08:53)
[2024-04-18] MEDS: hydroCHLOROthiazide 12.5mg 12.5 MG PO (08:53)
[2024-04-18] MEDS: Methocarbamol 500 MG Tablet 1000 MG PO ×4 (08:53→21:18)
[2024-04-18] MEDS: Losartan Potassium 50 MG Tablet PO (08:53)
[2024-04-18] MEDS: Citalopram 20 MG Tablet PO (08:53)
--- NOTE | 2024-04-18 09:11 | PN.HOSP_ITS ---
Reason for Visit Reason for Visit: Diagnoses Morbid (severe) obesity due to excess calories (04/17/24) Mild intermittent asthma, uncomplicated (04/17/24) Spondylolisthesis, site unspecified (04/17/24) Spondylolisthesis, lumbar region (04/17/24) Spinal stenosis, lumbar region with neurogenic claudication (04/17/24) Chronic cough (04/17/24) Encounter for other preprocedural examination (04/17/24) Body mass index [BMI] 40.0-44.9, adult (04/17/24) Subjective Subjective Patient with some pain but overall doing well, no abdominal pain or nausea, no shortness of breath, no new or acute complaints Objective Data Objective Data Vital Signs: Vital Signs Temp Pulse Resp BP Pulse Ox O2 Del Method O2 Flow Rate 97.7 F L 66 18 115/73 97 Room Air 2 04/18/24 08:40 04/18/24 08:40 04/18/24 08:40 04/18/24 08:40 04/18/24 08:40 04/18/24 08:42 04/18/24 06:58 FiO2 41 04/17/24 17:15 Oxygen Flow Rate (L/min) 2 Oxygen Delivery Method Room Air Weight: 131.995 kg Body Mass Index (BMI) 42.3 Intake & Output: Intake and Output for Last 24 Hours 04/16/24 04/17/24 04/18/24 23:59 23:59 23:59 Intake Total 329 / 729 510 / 510 Balance 329 / 729 510 / 510 Lab / Micro Data 04/18/24 06:55 04/18/24 06:55 Labs: Laboratory Results - last 24 hr 04/17/24 10:58: POC Glucose 108 H 04/17/24 11:08: POC PT 14.6, INR 1.3 04/18/24 06:55: WBC 9.5, RBC 3.29 L, Hgb 11.0 L, Hct 34.0 L, MCV 103.3 H, MCH 33.4 H, MCHC 32.4, RDW Std Deviation 55.8 H, RDW Coeff of Belen 14.7 H, Plt Count 181, MPV 10.7, Sodium 134 L, Potassium 4.4, Chloride 103, Carbon Dioxide 22.0, Anion Gap 9, BUN 14, Creatinine 1.06 H, Estim Creat Clear Calc 71.10, Est GFR (MDRD) Af Amer 66, Est GFR (MDRD) Non-Af 54 L, BUN/Creatinine Ratio 13.2, G lucose 116 H, Calcium 9.2 Micro: Microbiology 04/05/24 07:31 Swab (Method) Nasal Screen MRSA/MSSA - Final Physical Exam Narrative General: Alert, oriented, no apparent distress HEENT: Atraumatic, normocephalic Eyes: Anicteric, normal conjunctiva, extraocular movements grossly intact Neck: Supple Respiratory: Clear to auscultation bilaterally, normal respiratory effort Cardiovascular: Regular rate and rhythm GI: Soft, nontender, nondistended Extremities: No edema Musculoskeletal: Moving all extremities Neuro: No overt focal neurological deficits Skin: No rashes appreciated Psych: Cooperative Assessment & Plan Assessment/Plan (1) Spinal stenosis of lumbar region with neurogenic claudication: (2) Spondylolisthesis, lumbar region: (3) Degenerative spondylolisthesis: (4) Allergic asthma: QUALIFIERS: Asthma complication type: uncomplicated Asthma persistence: intermittent Asthma severity: mild Qualified Code(s): J45.20 - Mild intermittent asthma, uncomplicated (5) Obesity: QUALIFIERS: Body mass index: BMI 40.0-44.9 Obesity classification: adult class 3 (BMI >= 40) Obesity type: due to excess calories Serious obesity comorbidity presence: with serious comorbidity Q ualified Code(s): E66.01 - Morbid (severe) obesity due to excess calories; Z68.41 - Body mass index [BMI] 40.0-44.9, adult (6) Chronic cough: PLAN: Plan #Hx chronic asthma -Follows with Dr. Farris in the office -Continue formulary equivalent of home inhaler, budesonide and scheduled albuterol -Also has albuterol as needed available -97% on room air this a.m. #Hypothyroidism -Continue Synthroid # Depression ? Continue Celexa # Hypertension -Blood pressure 115/73 this a.m. -Home antihypertensives have been continued #GERD -Continue PPI #Morbid obesity -BMI 42.4 kg/m? -Complicates treatment, prognosis, outcomes -Recommend weight loss and lifestyle changes # Macrocytic anemia -Hemoglobin 12 range preop, 11 today -Suspect this is postop related has no evidence of ongoing blood loss # Spinal stenosis -Status post lumbar pedicle screw and fusion with Dr. Ngo 04/17 -Pain control per primary -Management per primary #DVT ppx: At discretion of primary Peg Duque MD Time spent in the patient's overall evaluation,decision-making process, review of diagnostic data, adjustment of management, discussion with other providers, nursing nursing and ancillary staff involved in patient's care documentation, 35 Minutes Charges/Coding Visit Charges Inpatient E&M: 45462 Subs Hosp L2
[2024-04-18] MEDS: Bisacodyl 5 MG Tablet 10 MG PO ×2 (11:27→16:41)
[2024-04-18] MEDS: Meloxicam 15 MG Tablet PO (11:36)
--- NOTE | 2024-04-18 11:58 | CASEMGMT ---
RED CALDWELL Assessment Face to Face with patient for initial transition planning/care coordination assessment. RED CALDWELL introduced self and role at [facility], pt voices understanding. Pt is A&Ox4 and is resting comfortably in bed and is calm. Care providers, pharmacy, and demographics verified. Admitting dx: ERAS 360 Lumbar Fusion L4-5 LACE Strata: 1 PCP: Tami Jackson Specialists: Matthew (Ortho), Dr. Александр Farris (Pulm for Asthma) [facility] Insurance: [facility] Prescription Benefit: Yes LNOK: Omari Ramirez (H) Living Arrangements: Pt lives with her SO in a split level home with 5 steps to the upper portion and 5 steps to the lower portion. There is one step to enter ADLs/IADLs: Ind Transportation: Self, , denies needs DME: Pulse Ox. BP Monitor. FWW. Grab bars. Shower bench. Graphic Design Intern. RTS. Inhaler. HHC/SNF: Denies Hx or needs Pt?s goal: Home Plan: home with pt . Pt was cleared by PT and OT. Pt denies HHC and SNF needs. Pt considered OP therapy but then states I don't need it. Pt educated to follow up with her PCP in the case that she changes her mind. Pt states understanding and denies further questions or concerns. Jamie Menezes RN, CM
--- NOTE | 2024-04-18 12:37 | PN.ORTHO_ITS ---
Subjective Subjective Seen with Dr. Castro. Patient is doing well and her pain has been well managed. Does note that she has been having some right sided burning hip pain since surgery. Says that walking helps decrease the pain. She has not passed flatus yet and will continue a clear liquids diet until she does. Dulcolax x1 ordered. She has walked with PT and to the bathroom without a walker. Objective Data Objective Data Vital Signs: Vital Signs Temp Pulse Resp BP Pulse Ox O2 Del Method O2 Flow Rate 97.7 F L 66 18 115/73 97 Room Air 2 04/18/24 08:40 04/18/24 08:40 04/18/24 08:40 04/18/24 08:40 04/18/24 08:40 04/18/24 08:42 04/18/24 06:58 FiO2 41 04/17/24 17:15 Oxygen Flow Rate (L/min) 2 Oxygen Delivery Method Room Air Weight: 291 lb Body Mass Index (BMI) 42.3 Intake & Output: Intake and Output for Last 24 Hours 04/16/24 04/17/24 04/18/24 23:59 23:59 23:59 Intake Total 329 / 729 510 / 510 Balance 329 / 729 510 / 510 Lab / Micro Data 04/18/24 06:55 04/18/24 06:55 Labs: Laboratory Results - last 24 hr 04/17/24 10:58: POC Glucose 108 H 04/18/24 06:55: WBC 9.5, RBC 3.29 L, Hgb 11.0 L, Hct 34.0 L, MCV 103.3 H, MCH 33.4 H, MCHC 32.4, RDW Std Deviation 55.8 H, RDW Coeff of Belen 14.7 H, Plt Count 181, MPV 10.7, Sodium 134 L, Potassium 4.4, Chloride 103, Carbon Dioxide 22.0, Anion Gap 9, BUN 14, Creatinine 1.06 H, Estim Creat Clear Calc 71.10, Est GFR (MDRD) Af Amer 66, Est GFR (MDRD) Non-Af 54 L, BUN/Creatinine Ratio 13.2, G lucose 116 H, Calcium 9.2 Micro: Microbiology 04/05/24 07:31 Swab (Method) Nasal Screen MRSA/MSSA - Final Radiography Diagnostic Testing: Radiology Impression Lumbar Spine X-Ray 04/18/24 07:00 IMPRESSION: Status post fusion at the L4-L5 level with prosthetic disc placement. Disc space narrowing and spondylosis at the L5-S1 level. Electronically Signed: Nicanor Escalera MD at 11:57 EDT , Physical Exam Narrative Belly incision covered with gauze and Tegaderm. Back surgical dressings have been removed due to the incisions seeping and covered with gauze and tape. Educated patient to keep these incisions dry. Neurological exam of the lower extremities shows 5x5 power with pain in R hip. Normal sensation across all dermatomes. Const alert, oriented x3 and no apparent distress Assessment & Plan Assessment/Plan (1) S/P lumbar fusion: PLAN: Plan Patient's pain has been well managed. She will stay until flatus is passed and a solid meal is tolerated. Dulcolax 10mg x1 has been orderede. No bending, lifting, or twisting. Patient clear to return home from PT. Encouraged patient to move as much as possible and to continue using incentive spirometer. Patient is in agreement.
--- NOTE | 2024-04-18 14:42 | CASEMGMT ---
Social Work SW met with pt and discussed advance directives. Pt states she has not completed either document. Pt educated that SW can assist with documents or additional information. Pt is not interested at this time. CLAUDIA Prather
[2024-04-19 03:40] VITALS: BP 137/85; PULSE 95; RESP 18; TEMP 36.4; O2SAT 96
[2024-04-19] MEDS: Acetaminophen 500 MG Tablet 1000 MG PO (06:35)
[2024-04-19] MEDS: Levothyroxine 25 MCG TABLET PO (06:35)
[2024-04-19] MEDS: oxyCODONE 5 MG Tablet PO (06:35)
[2024-04-19 07:02] VITALS: PULSE 77; RESP 16; O2SAT 98
[2024-04-19] MEDS: Albuterol 2.5 MG/3 ML VIAL.NEB. INHALATION (07:02)
[2024-04-19] MEDS: Budesonide Respules 0.5 MG/2 ML AMPUL.NEB. INHALATION (07:03)
[2024-04-19] MEDS: Citalopram 20 MG Tablet PO (08:40)
[2024-04-19] MEDS: hydroCHLOROthiazide 12.5mg 12.5 MG PO (08:41)
[2024-04-19] MEDS: Losartan Potassium 50 MG Tablet PO (08:41)
[2024-04-19] MEDS: Methocarbamol 500 MG Tablet 1000 MG PO (08:41)
[2024-04-19] MEDS: Cholecalciferol (VIT D3) 25 MCG TABLET (1,000 UNITS) 50 MCG PO (08:42)
[2024-04-19] MEDS: Meloxicam 15 MG Tablet PO (08:44)
[2024-04-19] MEDS: Pantoprazole Sodium 20 MG Tablet PO (08:44)
[2024-04-19 08:45] VITALS: O2SAT 93
[2024-04-19 08:48] VITALS: BP 125/71; PULSE 90; RESP 16; TEMP 36.7; O2SAT 93
[2024-04-19 09:05] VITALS: BMI 42.4
[2024-04-19] MEDS: Lactated Ringers 1,000 ML 15 ML IV (09:57)
--- NOTE | 2024-04-19 11:05 | CASEMGMT ---
RN JAVI NOTE: Discharge order is in. RN CM to room. Introduced self and role. Pt sitting up in bed, @ bedside. Questions answered. They voice appreciation. Pt and deny having any discharge needs. Didi BSN RN CM
[2024-04-19 11:07] VITALS: BP 119/70; PULSE 65; RESP 17; TEMP 36.8; O2SAT 94
--- NOTE | 2024-04-19 11:19 | PHA.DC.MR.R ---
Pharmacy [place] Med Reconciliation Pharmacy Service has performed discharge medication reconciliation for this patient. Medication education papers prepared, patient discharged when counseling was attempted. Medications reviewed. The patient's discharge medication list was reviewed for discrepancies and discrepancies were resolved. Medications at Discharge Home Medications cholecalciferol (vitamin D3) 50 mcg (2,000 unit) capsule 50 mcg PO DAILY SUPPLEMENT 02/21/22 citalopram 20 mg tablet 20 mg PO DAILY DEPRESSION 02/21/22 hydrochlorothiazide 12.5 mg tablet 12.5 mg PO DAILY BP 02/21/22 levothyroxine 25 mcg tablet 25 mcg PO DAILY THYROID 02/21/22 losartan 50 mg tablet 50 mg PO DAILY BP 02/21/22 albuterol sulfate 90 mcg/actuation aerosol inhaler (Ventolin HFA) 2 puff inhalation Q4H PRN shortness of breath or wheezing #8.5 grams 09/04/23 spacer #1 ea 09/28/23 fluticasone 500 mcg-salmeterol 50 mcg/dose blistr powdr for inhalation (Elenita Reid) 1 inh inhalation BID ASTHMA #60 ea 10/17/23 omeprazole 20 mg capsule,delayed release 20 mg PO DAILY GERD 04/02/24 acetaminophen 500 mg tablet 500 mg PO Q6H #30 tabs 04/19/24 meloxicam 15 mg tablet 15 mg PO DAILY #30 tabs 04/19/24 methocarbamol 500 mg tablet 750 mg (1.5 x 500 mg) PO TID PRN pain/spasms #30 tabs 04/19/24 oxycodone 5 mg tablet 2.5 - 5 mg (0.5 - 1 x 5 mg) PO Q6H PRN pain 7 days #28 tabs 04/19/24 sennosides 8.6 mg-docusate sodium 50 mg tablet (Stimulant Laxative Plus) 2 tab PO BID PRN constipation #30 tabs 04/19/24
--- NOTE | 2024-04-19 16:02 | PN.HOSP_ITS ---
Reason for Visit Reason for Visit: Diagnoses Morbid (severe) obesity due to excess calories (04/17/24) Mild intermittent asthma, uncomplicated (04/17/24) Spondylolisthesis, site unspecified (04/17/24) Spondylolisthesis, lumbar region (04/17/24) Spinal stenosis, lumbar region with neurogenic claudication (04/17/24) Chronic cough (04/17/24) Encounter for other preprocedural examination (04/17/24) Body mass index [BMI] 40.0-44.9, adult (04/17/24) Arthrodesis status (04/17/24) Objective Data Objective Data Vital Signs: Vital Signs Temp Pulse Resp BP Pulse Ox O2 Del Method O2 Flow Rate 98.2 F 65 17 119/70 94 Room Air 2 04/19/24 11:07 04/19/24 11:07 04/19/24 11:07 04/19/24 11:07 04/19/24 11:07 04/19/24 11:07 04/18/24 06:58 FiO2 41 04/17/24 17:15 Oxygen Flow Rate (L/min) 2 Oxygen Delivery Method Room Air Weight: 291 lb Body Mass Index (BMI) 42.3 Intake & Output: Intake and Output for Last 24 Hours 04/17/24 04/18/24 04/19/24 23:59 23:59 23:59 Intake Total 329 / 729 510 / 1085 1723 / 1723 Balance 329 / 729 510 / 1085 1723 / 1723 Lab / Micro Data 04/18/24 06:55 04/18/24 06:55 Micro: Microbiology 04/05/24 07:31 Swab (Method) Nasal Screen MRSA/MSSA - Final Radiography Diagnostic Testing: Radiology Impression Spine X-Ray 04/17/24 12:58 IMPRESSION: Fluoroscopic guided fusion of L4-5 Electronically Signed: Rico Gardiner MD at 16:52 EDT , Physical Exam Narrative Seen and examined. Patient has mild expected pain or stiffness of the back after surgery. No acute complaint. No fever Physical exam General: Alert, Oriented x3, Cooperative HEENT: Atraumatic, PERRLA, EOMI, Normocephalic Oral: No Gingival or Mucosal Lesions/ Ulcerations Neck: Supple, No JVD, Negative Carotid Bruits Chest wall/Lungs: Air entry diminished in bilateral lung bases. No crepitation/rhonchi Cardiovascular: Regular rate, Regular Rhythm, Normal S1, Normal S2, No M/G/R Abdomen: Bowel Sounds Present, Soft, Non Tender, Non-Distended : No dysuria. No renal angle tenderness. No suprapubic tenderness. Extremities: No edema, Capillary Refill Less than 3 Seconds Skin: Left lateral abdominal surgical dressing dry. Spine: Mild, small area of cutaneous bruise over lumbar region on the left side. Mild tenderness. Musculoskeletal: No Tenderness to Palpation of Joints or Extremities Neurological: Cranial nerves II-XII grossly intact, DTR 2+/4. No acute focal neurological deficit. Psych/Mental Status: Normal Affect, Appropriate. Assessment & Plan Assessment/Plan (1) Spinal stenosis of lumbar region with neurogenic claudication: (2) Spondylolisthesis, lumbar region: (3) Degenerative spondylolisthesis: (4) Allergic asthma: QUALIFIERS: Asthma severity: mild Asthma persistence: i ntermittent Asthma complication type: uncomplicated Qualified Code(s): J45.20 - Mild intermittent asthma, uncomplicated (5) Obesity: QUALIFIERS: Obesity type: due to excess calories Obesity classification: adult class 3 (BMI >= 40) Serious obesity comorbidity presence: with serious comorbidity Body mass index: BMI 40.0-44.9 Qualified Code(s): E66.01 - Morbid (severe) obesity due to excess calories; Z68.41 - Body mass index [BMI] 40.0-44.9, adult (6) Chronic cough: PLAN: Plan #Hx chronic asthma -Follows with Dr. Farris in the office -Continue formulary equivalent of home inhaler, budesonide and scheduled albuterol -Also has albuterol as needed available -97% on room air this a.m. 05/06 no acute exacerbation #Hypothyroidism -Continue Synthroid # Depression ? Continue Celexa # Hypertension -Blood pressure 115/73 this a.m. -Home antihypertensives have been continued #GERD -Continue PPI #Morbid obesity -BMI 42.4 kg/m? -Complicates treatment, prognosis, outcomes -Recommend weight loss and lifestyle changes # Macrocytic anemia -Hemoglobin 12 range preop, 11 today 04/19 H&H 11/34%. MCV 103. Platelet count 181,000. Electrolytes show sodium 134, mild hyponatremia. # Spinal stenosis -Status post lumbar pedicle screw and fusion with Dr. Ngo 04/17 -Pain control per primary -Management per primary #DVT ppx: At discretion of primary Charges/Coding Visit Charges Inpatient E&M: 63601 Subs Hosp L2
== END 2024-04-19 11:14 | disposition home or self-care (01) | DRG 455 ==
LOC: ACINP 10:26 → MS3 17:03
PROVIDERS: Anesthesiology; Student in an Organized Health Care Education/Training Program; Admitting Provider Orthopaedic Surgery Orthopaedic Surgery of the Spine; PCP Family Medicine; Referring Provider Orthopaedic Surgery Orthopaedic Surgery of the Spine; Visit Provider Orthopaedic Surgery Orthopaedic Surgery of the Spine
PROC: 0SG00A0 Fusion of Lumbar Vertebral Joint with Interbody Fusion Device, Anterior Approach, Anterior Column, Open Approach (ICD-10-PCS; principal; 2024-04-17 12:00)
DX: M48.062 Spinal stenosis, lumbar region with neurogenic claudication (principal); D53.9 Nutritional anemia, unspecified; E66.01 Morbid (severe) obesity due to excess calories; I10 Essential (primary) hypertension; J45.20 Mild intermittent asthma, uncomplicated; M51.36 Other intervertebral disc degeneration, lumbar region; M51.37 Other intervertebral disc degeneration, lumbosacral region; M43.16 Spondylolisthesis, lumbar region; K21.9 Gastro-esophageal reflux disease without esophagitis; Z79.51 Long term (current) use of inhaled steroids; Z79.890 Hormone replacement therapy; Z79.899 Other long term (current) drug therapy
CPT/HCPCS: 36415; 36416; 72020; 72100; 76000; 80048; 82962; 83735; 84443; 85025; 85027; 85610; 86703; 86706; 86708; 86803; 86850; 86900; 86901; 87081; 93005; 94640; 94668; 97162; 97166; 97530; C1713; J2405

== ENCOUNTER → 2024-08-12 | Outpatient (CLI) | payer MEDICARE, SELFPAY | END | disposition home or self-care (01) | LOC: LABSPEC 11:23 | PROVIDERS: PCP Family Medicine; Referring Provider Nurse Practitioner Family; Visit Provider Nurse Practitioner Family | DX: R39.15 Urgency of urination (principal) | CPT/HCPCS: 87086; 87088 ==

== ENCOUNTER → 2024-11-04 | Outpatient (CLI) | payer MEDICARE, SELFPAY | END | disposition home or self-care (01) | LOC: MTLAB 10:30 | PROVIDERS: PCP Family Medicine; Referring Provider Family Medicine; Visit Provider Family Medicine | DX: E03.9 Hypothyroidism, unspecified (principal) | CPT/HCPCS: 36415; 84439; 84443 ==

== ENCOUNTER → 2025-05-15 | Outpatient (CLI) | payer MEDICARE, SELFPAY ==
[2025-05-15 10:11] LABS: Hematocrit 37.7 % (37-47); Hemoglobin 12.6 g/dL (12.0-15.0); Mean Corp Hgb Conc 33.4 g/dL (32-36); Mean Corpuscular Volume 99.2 fL (81-99); Mean Platelet Vol. 11.6 fl (6.2-12.0); Platelet Count 187 K/mm3 (150-450); RBC Distribution Width CV 14.2 % (11.6-14.6); RBC Distribution Width SD 51.8 fl (35.1-43.9); Red Blood Count 3.80 M/mm3 (4.2-5.4); White Blood Count 4.1 K/mm3 (4.4-11.0)
[2025-05-15 14:25] LABS: Albumin, Serum 4.2 g/dL (3.4-4.8); Chloride 99 mmol/L (98-108); Potassium 5.3 mmol/L (3.3-5.1)
[2025-05-15 19:06] LABS: AST(SGOT) 208 U/L (<=31); Alanine Aminotransfer ALT/SGPT 194 U/L (<=34); Alkaline Phosphatase 97 U/L (35-104); Anion Gap 15 (5-15); BUN 15 mg/dL (4-19); BUN/Creat Ratio 19.6 RATIO (10-20); Calcium,Total 10.8 mg/dL (7.6-11.0); Carbon Dioxide 23.7 mmol/L (21.0-32.0); Cholesterol 238 mg/dL (<=200); Globulin 4.0 g/dL (2.2-4.2); Glucose 107 mg/dL (70-99); Low Density Lipoprotein Calc. 130 mg/dL; Triglycerides 92 mg/dL; Very Low Density Lipoprotein 18 mg/dL (5-40); cholesterol:hdl ratio screen 2.66
== END | disposition home or self-care (01) ==
LOC: MFPLAB 09:28
PROVIDERS: PCP Family Medicine; Visit Provider Family Medicine
DX: I10 Essential (primary) hypertension (principal); E03.9 Hypothyroidism, unspecified
CPT/HCPCS: 36415; 80053; 80061; 84439; 84443; 85027

== ENCOUNTER → 2025-06-06 | Outpatient (CLI) | payer MEDICARE, SELFPAY ==
--- NOTE | 2025-06-06 08:23 | US_ITS ---
PROCEDURE: US/Abdomen Limited
== END | disposition home or self-care (01) ==
LOC: US 08:21
PROVIDERS: PCP Family Medicine; Referring Provider Family Medicine; Visit Provider Family Medicine
DX: R74.01 Elevation of levels of liver transaminase levels (principal)
CPT/HCPCS: 76705